=== PATIENT | female | born 1975 | race Hispanic/Latino ===

== ENCOUNTER 2017-08-01 14:08 | Emergency (ER) | payer SELFPAY ==
--- NOTE | 2017-08-01 14:32 | RAD REPORT ---
EXAM DESCRIPTION: CT - Ct Stroke Brain Wo Cont - 08/01/2017 2:25 pm CLINICAL HISTORY: CVA COMPARISON: None. TECHNIQUE: All CT scans are performed using dose optimization technique as appropriate and may inclu de automated exposure control or mA/KV adjustment according to patient size. FINDINGS: No intracranial hemorrhage, hydrocephalus or extra-axial fluid collection.No areas of brai n edema or evidence of midline shift. Mild mucoperiosteal thickening is seen affects the right maxillary antrum. The paranasal sinuses and mastoids otherwise clear. The calvarium is intact. IMPRESSION: No acute intracranial abnormality. Mild mucoperiosteal thickening of the right maxillary antrum. The findings were discussed with Dr. Coker in the emergency room on 08/01/2017 at 2:28 p.m. by traci myers.
[2017-08-01] MEDS ORDERED: NA CHLORIDE 0.9% 1,000 ML ONE (14:42)
[2017-08-01] MEDS ORDERED: ONDANSETRON 4 MG/2 ML VIAL ONE ×2 (14:42→16:53)
[2017-08-01] MEDS ORDERED: MORPHINE 4 MG/ML SYR ONE ×2 (14:42→16:46)
[2017-08-01] MEDS ORDERED: FOLIC ACID 5 MG/ML VIAL ONE (14:43)
[2017-08-01 14:47] LABS: RBC Red Blood Cell Count 5.42 M/uL (3.86-4.86)
[2017-08-01 14:48] LABS: Absolute Lymphocytes (CBC) 3.1 K/uL (0.7-4.9); Absolute Monocytes 0.6 K/uL (0.1-1.3); Absolute Neutrophil 5.5 K/uL (1.8-8.0); Basophils % 1.2 % (0-1.3); Eosinophils % 2.5 % (0-4.4); Hematocrit 43.1 % (36.0-45.0); Lymphocytes % 32.4 % (15.3-44.8); MCH 25.7 pg (27.0-35.0); MCV 79.6 fL (80-100); MPV 8.3 fL (7.6-11.3)
[2017-08-01 15:09] LABS: BUN Blood Urea Nitrogen 10 mg/dL (6-20); Bicarbonate 24 mEq/L (21-31); Glucose Level 112 mg/dL (65-120); Potassium 3.1 mEq/L (3.6-5.0); Sodium Level 136 mEq/L (135-145)
[2017-08-01 15:18] LABS: Protime INR 0.99
--- NOTE | 2017-08-01 15:19 | RAD REPORT ---
EXAM DESCRIPTION: RAD - Chest Single View - 08/01/2017 3:10 pm CLINICAL HISTORY: Chest pain. COMPARISON: None. FINDINGS: Portable technique limits examination quality. The lungs are underinflated but grossly clear. The heart is upper limit normal in size. No displaced fractures. IMPRESSION: Underinflated lungs.
--- NOTE | 2017-08-01 16:45 | RAD REPORT ---
EXAM DESCRIPTION: MRI - Brain Wo Cont - 08/01/2017 4:25 pm CLINICAL HISTORY: TIA, possible CVA, left extremity weakness COMPARISON: CT head same date TECHNIQUE: Sagittal T1-weighted images were obtained along with axial PD, heavily T2-weighted and T2 -FLAIR images. Axial DWI and ADC mapping sequences were also obtained along with coronal heavily T2-w eighted images. FINDINGS: No intracranial hemorrhage, mass or acute infarction. There is no edema or shift of midlin e structures. No extra-axial fluid collections. Lopez-matter/white matter junction is preserved. Signa l voids are seen as a normal finding in the major intracranial vessels. Ventricles are normal. No vas culitis, migraine headache changes or other focal brain parenchymal abnormality. No sella or supra se lla finding. No tonsillar ectopia. No globe or orbital content abnormality. Mastoid air cells are clear. Mucosal thickening seen in the maxillary sinuses. IMPRESSION: No infarction or other acute or significant intracranial finding. Maxillary sinus mucosal thickening.
[2017-08-01] MEDS ORDERED: DEXAMETHASONE 10 MG/ML VIAL ONE (16:52)
[2017-08-01] MEDS ORDERED: DIPHENHYDRAMINE 50 MG/ML VIAL ONE (16:53)
[2017-08-01] MEDS ORDERED: FAMOTIDINE 20 MG/2 ML VIAL IV ONE (16:54)
[2017-08-01 17:14] LABS: Urine Bacteria <20 /HPF (<20); Urine RBC <5 /HPF (NONE SEEN)
[2017-08-01 17:16] LABS: Urine Culture Reflex Order NOT NEEDED
[2017-08-01 17:16] LABS: Urine Blood 1+ (NEG); Urine Glucose NEGATIVE (NEG); Urine Protein NEGATIVE (NEG)
--- NOTE | 2017-08-01 17:37 | EKG ---
Test Date: 2017-08-01 Test Time: 14:55:59 Crane Follower: EMMANUEL MEASUREMENT RESULTS: Intervals: Rate: 93 [place]: 138 QRSD: 78 QT: 340 QTc: 422 [place]: P: 25 [place]: 138 QRS: 52 T: 18 INTERPRETIVE STATEMENTS: Normal sinus rhythm Nonspecific ST and T wave abnormality Abnormal ECG No previous ECG available for comparison Electronically Signed On 08-01-17 17:36:41 CDT by Patrick Moss
--- NOTE | 2017-08-01 17:50 | ER ---
Nurse's Notes 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 Transition of care: patient was not received from another setting of care. Onset of symptoms was August 01, 2017. Risk Assessment: Do you want to hurt yourself or someone else? Patient reports no desire to harm self or others. Initial Sepsis Screen: Does the patient meet any 2 criteria?. Initial Sepsis Screen: Does the patient have a suspected source of infection? No. Patient's initial sepsis screen is negative. Care prior to arrival: None. 14:17 Method Of Arrival: Wheelchair ph 14:17 Acuity: SOL 2 ph 18:39 No acute neurological deficit is noted. The patients blood glucose was checked before iw arriving to the hospital and was found to be normal. Triage Assessment: 14:17 The onset of the patients symptoms was August 01, 2017 at 13:00. iw 14:17 Pain: Complains of pain in left arm. iw 14:17 Neuro: Reports weakness in left arm. iw 18:30 General: Appears in no apparent distress. Behavior is calm, cooperative. iw 18:40 The onset of the patients symptoms was. iw MEDICAL LAB TECHNOLOGIST: 18:40 LMP N/A - iw Stroke Activation: Symptom onset < 3 hours Physician: Stroke Attending; Name: ; Notified At: ; Arrived At: Physician: Chief Stroke Resident; Name: ; Notified At: ; Arrived At: Physician: Stroke Resident; Name: ; Notified At: ; Arrived At: Physician: ED Attending; Name: ; Notified At: ; Arrived At: Physician: ED Resident; Name: ; Notified At: ; Arrived At: Historical: - Allergies: 14:52 NKA; iw - Home Meds: 14:52 None [Active]; iw - PMHx: 14:52 None; iw - Immunization history:: Adult Immunizations up to date. - Ebola Screening: : Patient negative for fever greater than or equal to 101.5 degrees Fahrenheit, and additional compatible Ebola Virus Disease symptoms Patient denies exposure to infectious person Patient denies travel to an Ebola-affected area in the 21 days before illness onset No symptoms or risks identified at this time. - Social history:: Smoking status: Patient/guardian denies using tobacco. Screenin:18 Abuse screen: Denies threats or abuse. Denies injuries from another. Nutritional sv screening: No deficits noted. Tuberculosis screening: No symptoms or risk factors identified. 15:03 Patient has been NPO before screening. The patient is alert, able to follow commands. hb The patient does not exhibit slurred or garbled speech The patient is not exhibiting difficulty speaking. The patient does not exhibit difficulty understanding words. The patient is able to swallow own secretions with no drooling or need for suction. Patient tolerated one teaspoon of water. No drooling, immediate coughing, gurgling, or clearing of the throat was noted. The patient tolerated 90mL of water. No drooling, immediate coughing, gurgling, or clearing of the throat was noted. The patient passed the bedside swallow screening. Oral medications may be given as ordered. Contact Physician for further diet orders. Fall Risk None identified. Assessment: 14:15 Reassessment: Code Stroke called. sv 14:45 Reassessment: Alec Pappas at bedside to reassess pt. iw 14:52 Reassessment: Dr. Coker at bedside to assess patient. iw 14:54 Reassessment: MRI ordered, staff notified, states they have a patient on the table iw right now but will come get her after. 15:04 Patient has been NPO before screening. The patient is alert, and able to follow hb commands. The patient does not exhibit slurred or garbled speech. The patient is not exhibiting difficulty speaking. The patient does not exhibit difficulty understanding words. The patient is able to swallow own secretions with no drooling or need for suction. Patient tolerated one teaspoon of water. No drooling, immediate coughing, gurgling, or clearing of the throat was noted. The patient tolerated 90mL of water. No drooling, immediate coughing, gurgling, or clearing of the throat was noted. The patient passed the bedside swallow screening. Oral medications may be given as ordered. Contact Physician for further diet orders. Provider notified of bedside swallow screening results: Alec Coker MD. T-PA (Activase) Screening: Indications: Definite evidence of stroke, ischemic, embolic, or hypertensive: No. Treatment will start within 4.5 hours onset of symptoms: Yes. 16:00 Reassessment: Patient appears in no apparent distress at this time. Patient and/or hb family updated on plan of care and expected duration. Pain level reassessed. Patient is alert, oriented x 3, equal unlabored respirations, skin warm/dry/pink. Patient states symptoms have improved. 17:00 Reassessment: Patient appears in no apparent distress at this time. No changes from hb previously documented assessment. Patient and/or family updated on plan of care and expected duration. Pain level reassessed. Patient is alert, oriented x 3, equal unlabored respirations, skin warm/dry/pink. 18:00 Reassessment: Patient appears in no apparent distress at this time. No changes from hb previously documented assessment. Patient and/or family updated on plan of care and expected duration. Pain level reassessed. Patient is alert, oriented x 3, equal unlabored respirations, skin warm/dry/pink. 18:38 Reassessment: Patient appears in no apparent distress at this time. Patient and/or iw family updated on plan of care and expected duration. Pain level reassessed. Patient is alert, oriented x 3, equal unlabored respirations, skin warm/dry/pink. Patient states feeling better. Patient states symptoms have improved. 18:40 Neuro: No deficits noted. iw Vital Signs: 14:30 BP 182 / 112; Pulse 99; Resp 18 S; Temp 98.3; Pulse Ox 98% on R/A; iw 14:49 Weight 62.82 kg (M); sv 14:50 BP 170 / 109; Pulse 110; Resp 22 S; Pulse Ox 98% on R/A; Pain 10/10; iw 15:22 BP 144 / 90; Pulse 107; Resp 18 S; Pulse Ox 100% on R/A; iw 16:38 BP 133 / 71; Pulse 75; Resp 16; Pulse Ox 100% on R/A; Pain 5/10; hb 17:46 BP 137 / 76; Pulse 75; Resp 18; Pulse Ox 100% ; sv 18:29 BP 126 / 65; Pulse 74; Resp 15; Pulse Ox 100% on R/A; hb NIH Stroke Scale Scores: 14:33 NIHSS Score: 5 cp 15:04 NIHSS Score: 1 hb ED Course: 14:12 Patient arrived in ED. mr 14:12 None, None is Private Physician. mr 14:15 Arm band placed on right wrist. hb 14:[address] via wheelchair. sv 14:18 Patient has correct armband on for positive identification. sv 14:20 Triage completed. ph 14:21 Alec Pappas PA is PHCP. cp 14:21 Alec Coker MD is Attending Physician. cp 14:26 CT Stroke Brain w/o Contrast In Process Unspecified. EDMS 14:27 Patient moved back from CT. sv 14:30 Initial lab(s) drawn, by me, sent to lab. Inserted saline lock: 20 gauge in right sv antecubital area, using aseptic technique. Blood collected. Flushed right antecubital with 5 ml normal saline. 14:35 equipment monitor phototypesetting on. Pulse ox on. NIBP on. sv 14:43 Placed in gown. Bed in low position. Call light in reach. Side rails up X2. Adult w/ sv patient. 14:55 X-ray(s) taken. sv 15:04 EKG done, by media technician. reviewed by Alec Coker MD. sm3 15:05 X-ray completed. Portable x-ray completed in exam room. Patient tolerated procedure ag1 well. 15:07 Stroke CXR 1 View In Process Unspecified. EDMS 16:10 Patient moved to MRI via wheelchair. ka 16:12 Brain Wo Cont In Process Unspecified. EDMS 16:28 MRI completed. Patient tolerated well. Patient moved back from MRI. em2 16:38 Gloria Levine, RN is Primary Nurse. hb 16:54 Urine collected: clean catch specimen, cloudy, anabella colored. jb1 18:38 No provider procedures requiring assistance completed. IV discontinued, intact, iw bleeding controlled, No redness/swelling at site. Pressure dressing applied. Administered Medications: 14:40 CANCELLED (Physician Discretion): morphine 2 mg IVP once cp 14:53 Drug: foLIC Acid 1 mg Route: IVPB; Site: right antecubital; hb 16:59 Follow up: IV Status: Completed infusion hb 14:54 CANCELLED (Physician Discretion): ACTIvase 55.8 mg IV at calculated rate Per protocol cp over 60 mins; 0.9 mg/kg IV (Max: 90 mg); give 10% of the total dose as an IV bolus over 1 minute, then give the remaining 90% as an IV infusion over 60 minutes 15:02 Drug: morphine 2 mg Route: IVP; Site: right antecubital; hb 16:59 Follow up: Response: No adverse reaction hb 15:02 Drug: NS 0.9% 1000 ml Route: IV; Rate: 1 bolus; Site: right antecubital; hb 16:15 Follow up: IV Status: Completed infusion iw 15:03 Drug: Aspirin Chewable Tablet 324 mg Route: PO; hb 16:58 Follow up: Response: No adverse reaction hb 16:49 Drug: morphine 2 mg Route: IVP; Site: right antecubital; hb 16:59 Follow up: Response: No adverse reaction hb 16:58 Drug: Zofran 4 mg Route: IVP; Site: right antecubital; hb 17:10 Follow up: Response: No adverse reaction iw 16:58 Drug: Pepcid 20 mg Route: IVP; Site: right antecubital; hb 17:15 Follow up: Response: No adverse reaction iw 16:58 Drug: Decadron - Dexamethasone 10 mg Route: IVP; Site: right antecubital; hb 18:41 Follow up: Response: No adverse reaction iw 16:58 Drug: Benadryl 12.5 mg Route: IVP; Site: right antecubital; hb 17:30 Follow up: Response: No adverse reaction; Pain is decreased iw Point of Care Testing: Blood Glucose: 14:18 Blood Glucose: 126 mg/dL; sv Ranges: Outcome: 17:50 Discharge ordered by . cp 18:39 Discharged to home iw 18:39 Condition: good 18:39 Discharge instructions given to patient, family, Instructed on discharge instructions, follow up and referral plans. medication usage, Demonstrated understanding of instructions, follow-up care, medications, Prescriptions given X 3. 18:42 Patient left the ED. iw NIH Stroke Scale - NIH Stroke Score Date: 08/01/2017 Time: 14:33 Total Score = 5 1a. Level of Consciousness (LOC) - 0(Alert) 1b. Level of Consciousness (LOC) (Year \\T\\ Age) - 0(Both) 1c. LOC Commands (Open \\T\\ Closes Eyes/Paint Preparer) - 1(One) 2. Best Gaze (Lateral Gaze Paresis) - 0(Normal) 3. Visual Field Loss - 0(No visual loss) 4. Facial Palsy - 0(Normal) 5a. Left Arm: Motor (10-second hold) - 2(Drift, some effort against gravity) 5b. Right Arm: Motor (10-second hold) - 0(No drift) 6a. Left Leg: Motor (5-second hold - always test supine) - 0(No drift) 6b. Right Leg: Motor (5-second hold - always test supine) - 0(No drift) 7. Limb Ataxia (finger/nose \\T\\ heel/maya - test with eyes open) - 1(Present in one limb) 8. Sensory Loss (pinprick arms/legs/face) - 1(Mild to moderate loss) 9. Best Language: Aphasia (description/naming/reading) - 0(No aphasia) 10. Dysarthria (speech clarity - read or repeat words) - 0(Normal) 11. Extinction and Inattention (visual/tactile/auditory/spatial/personal) - 0(No abnormality) Initials: cp NIH Stroke Scale - NIH Stroke Score Date: 08/01/2017 Time: 15:04 Total Score = 1 1a. Level of Consciousness (LOC) - 0(Alert) 1b. Level of Consciousness (LOC) (Year \\T\\ Age) - 0(Both) 1c. LOC Commands (Open \\T\\ Closes Eyes/Paint Preparer) - 0(Both) 2. Best Gaze (Lateral Gaze Paresis) - 0(Normal) 3. Visual Field Loss - 0(No visual loss) 4. Facial Palsy - 0(Normal) 5a. Left Arm: Motor (10-second hold) - 0(No drift) 5b. Right Arm: Motor (10-second hold) - 0(No drift) 6a. Left Leg: Motor (5-second hold - always test supine) - 0(No drift) 6b. Right Leg: Motor (5-second hold - always test supine) - 0(No drift) 7. Limb Ataxia (finger/nose \\T\\ heel/maya - test with eyes open) - 0(Absent) 8. Sensory Loss (pinprick arms/legs/face) - 1(Mild to moderate loss) 9. Best Language: Aphasia (description/naming/reading) - 0(No aphasia) 10. Dysarthria (speech clarity - read or repeat words) - 0(Normal) 11. Extinction and Inattention (visual/tactile/auditory/spatial/personal) - 0(No abnormality) Initials: Signatures: Dispatcher [employer] EDFerny Peterson jb1 Pricila Newby, RN Lidya Adams Irene, RN Carlos Enrique Lyles2 Senia Weller RN Annamaria Dupree ph ag1 Alec Pappas PA PA cp Aguilera, Katelyn ka Baxter, Heather, RN RN Surekha Bruner 3 Corrections: (The following items were deleted from the chart) 14:50 14:48 62.6 kg Measured; [facility]
--- NOTE | 2017-08-01 17:50 | EDPHYS ---
Physician Documentation [facility] Name: Lidya Hall Age: 42 yrs Sex: Female : 1975 Arrival Date: 08/01/2017 Time: 14:12 Bed 6 Private MD: None, None ED Physician Alec Coker HPI: 08/01 14:40 This 42 yrs old Female presents to ER via Wheelchair with complaints of cp Numbness Of Arm. 14:40 The patient or guardian complains of pain, that is acute, tenderness, weakness. The cp complaints affect the left arm. Onset: The symptoms/episode began/occurred 1 hour(s) ago. Treatment prior to arrival includes: took OTC aspirin. Associated signs and symptoms: Pertinent negatives: deformity, fever, injury. Severity of symptoms: in the emergency department the symptoms are unchanged, despite home interventions. 15:05 Patient reports prior to having symptoms she was involved in tense argument with son cp concerning finances for upcoming wedding. 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 - Ebola Screening: : Patient negative for fever greater than or equal to 101.5 degrees Fahrenheit, and additional compatible Ebola Virus Disease symptoms Patient denies exposure to infectious person Patient denies travel to an Ebola-affected area in the 21 days before illness onset No symptoms or risks identified at this time. - Social history:: Smoking status: Patient/guardian denies using tobacco. ROS: 14:42 Eyes: Negative for injury, pain, redness, and discharge. cp 14:42 Constitutional: Negative for body aches, chills, fever, poor PO intake. 14:42 ENT: Negative for drainage from ear(s), ear pain, sore throat, difficulty swallowing, difficulty handling secretions. 14:42 Cardiovascular: Negative for chest pain, edema, palpitations. 14:42 Respiratory: Negative for cough, shortness of breath, wheezing. 14:42 Abdomen/GI: Negative for abdominal pain, vomiting, diarrhea, constipation, black/tarry stool, rectal bleeding. 14:42 MS/extremity: Positive for pain, paresthesias, of the left arm, Negative for injury or acute deformity. 14:42 Neuro: Positive for weakness, of the left arm. 14:42 All other systems are negative. Exam: 14:45 Constitutional: The patient appears in no acute distress, alert, awake, cp non-diaphoretic, non-toxic, well developed, well nourished, uncomfortable. 14:45 Head/Face: Normocephalic, atraumatic. Eyes: Pupils equal round and reactive to light, cp extra-ocular motions intact. Lids and lashes normal. Conjunctiva and sclera are non-icteric and not injected. Cornea within normal limits. Periorbital areas with no swelling, redness, or edema. ENT: Nares patent. No nasal discharge, no septal abnormalities noted. Tympanic membranes are normal and external auditory canals are clear. Oropharynx with no redness, swelling, or masses, exudates, or evidence of obstruction, uvula midline. Mucous membranes moist. Neck: Trachea midline, no thyromegaly or masses palpated, and no cervical lymphadenopathy. Supple, full range of motion without nuchal rigidity, or vertebral point tenderness. No Meningismus. Chest/axilla: Normal chest wall appearance and motion. Nontender with no deformity. No lesions are appreciated. 14:45 Cardiovascular: Rate: normal, Rhythm: regular, Pulses: Pulses are 2+ in right radial artery and left radial artery. Heart sounds: murmur, not appreciated, rub, not appreciated, gallop, not appreciated, Edema: is not appreciated, JVD: is not appreciated. 14:45 Respiratory: the patient does not display signs of respiratory distress, Respirations: normal, no use of accessory muscles, no retractions, no splinting, no tachypnea, labored breathing, is not present, Breath sounds: are clear throughout, no decreased breath sounds, no stridor, no wheezing. 14:45 Abdomen/GI: Inspection: abdomen appears normal, Bowel sounds: active, all quadrants, Palpation: abdomen is soft and non-tender, in all quadrants, rebound tenderness, is not appreciated, voluntary guarding, is not appreciated, involuntary guarding, is not appreciated. 14:45 Back: pain, is absent, ROM is normal. 14:45 Musculoskeletal/extremity: Extremities: grossly normal except: noted in the left arm: decreased ROM, pain, tenderness, the left arm decreased sensation. 14:45 Skin: cellulitis, is not appreciated, no rash present. 14:45 Neuro: Orientation: to person, place \T\ time. Mentation: lucid, able to follow commands, Cerebellar function: dysmetria is noted on the left, heel to maya testing is normal, Motor: strength is 4/5 in the left arm. Vital Signs: 14:30 BP 182 / 112; Pulse 99; Resp 18 S; Temp 98.3; Pulse Ox 98% on R/A; iw 14:49 Weight 62.82 kg (M); sv 14:50 BP 170 / 109; Pulse 110; Resp 22 S; Pulse Ox 98% on R/A; Pain 10/10; iw 15:22 BP 144 / 90; Pulse 107; Resp 18 S; Pulse Ox 100% on R/A; iw 16:38 BP 133 / 71; Pulse 75; Resp 16; Pulse Ox 100% on R/A; Pain 5/10; hb 17:46 BP 137 / 76; Pulse 75; Resp 18; Pulse Ox 100% ; sv 18:29 BP 126 / 65; Pulse 74; Resp 15; Pulse Ox 100% on R/A; hb NIH Stroke Scale Scores: 14:33 NIHSS Score: 5 cp 15:04 NIHSS Score: 1 hb MDM: 14:21 Patient medically screened. cp 14:30 Differential diagnosis: tendonitis, anxiety, CVA, TIA, cardiac arrythmia, acute MA. cp 15:00 Physician consultation: Alec Coker MD regarding patient's condition, administration cp of tpa, would like further tests performed, MRI, patient within window of use of tpa, wants head/brain MRI before considering tpa. Believes symptoms due to recent argument with son and not due to CVA. 17:45 Data reviewed: vital signs, nurses notes, lab test result(s), EKG, radiologic studies, cp CT scan, MRI. 17:45 Response to treatment: the patient's symptoms have markedly improved after treatment, cp VSS. Pain and symptoms markedly improved. Head CT and MRI both negative for acute findings. Will discharge to home for continued monitoring. 08/01 14:16 Order name: Basic Metabolic Panel; Complete Time: 15:50 sv 08/01 15:50 Interpretation: Normal except: K 3.1. cp 08/01 14:16 Order name: CBC with Diff; Complete Time: 15:50 sv 08/01 15:50 Interpretation: Normal except: RBC 5.42; MCV 79.6; MCH 25.7; PLT 484. 08/01 14:16 Order name: Protime (+inr); Complete Time: 15:50 sv 08/01 14:16 Order name: Ptt, Activated; Complete Time: 15:50 sv 08/01 14:16 Order name: Urine Microscopic Only; Complete Time: 17:19 sv 08/01 17:19 Interpretation: Normal except: SQEPI 5-10. 08/01 14:20 Order name: Glucose, Ancillary Testing; Complete Time: 14:21 EDMS 08/01 14:21 Interpretation: GLUC,ANCIL 126; Reviewed. 08/01 14:16 Order name: CT Stroke Brain w/o Contrast; Complete Time: 14:39 sv 08/01 14:39 Interpretation: Report reviewed. 08/01 14:16 Order name: Stroke CXR 1 View; Complete Time: 15:50 sv 08/01 16:12 Order name: Brain Wo Cont; Complete Time: 16:46 EDMS 08/01 17:03 Order name: Urine Dipstick--Ancillary (enter results); Complete Time: 17:19 ag 08/01 17:19 Interpretation: Normal except: UBLD 1+. 08/01 17:03 Order name: Urine --Ancillary (enter results); Complete Time: 17:19 ag 08/01 14:16 Order name: EKG; Complete Time: 14:17 sv 08/01 14:16 Order name: Accucheck; Complete Time: 14:19 sv 08/01 14:16 Order name: Cardiac monitoring; Complete Time: 14:54 sv 08/01 14:16 Order name: EKG - Nurse/Tech; Complete Time: 14:53 sv 08/01 14:16 Order name: IV Saline Lock; Complete Time: 14:53 sv 08/01 14:16 Order name: Labs collected and sent; Complete Time: 14:53 sv 08/01 14:16 Order name: NPO; Complete Time: 14:53 sv 08/01 14:16 Order name: O2 Per Protocol; Complete Time: 14:53 sv 08/01 14:16 Order name: O2 Sat Monitoring; Complete Time: 14:53 sv 08/01 14:16 Order name: Stroke Swallow Screen; Complete Time: 15:03 sv 08/01 14:16 Order name: Urine Dipstick-Ancillary (obtain specimen); Complete Time: 16:54 sv Administered Medications: 14:40 CANCELLED (Physician Discretion): morphine 2 mg IVP once cp 14:53 Drug: foLIC Acid 1 mg Route: IVPB; Site: right antecubital; hb 16:59 Follow up: IV Status: Completed infusion hb 14:54 CANCELLED (Physician Discretion): ACTIvase 55.8 mg IV at calculated rate Per protocol cp over 60 mins; 0.9 mg/kg IV (Max: 90 mg); give 10% of the total dose as an IV bolus over 1 minute, then give the remaining 90% as an IV infusion over 60 minutes 15:02 Drug: morphine 2 mg Route: IVP; Site: right antecubital; hb 16:59 Follow up: Response: No adverse reaction hb 15:02 Drug: NS 0.9% 1000 ml Route: IV; Rate: 1 bolus; Site: right antecubital; hb 16:15 Follow up: IV Status: Completed infusion iw 15:03 Drug: Aspirin Chewable Tablet 324 mg Route: PO; hb 16:58 Follow up: Response: No adverse reaction hb 16:49 Drug: morphine 2 mg Route: IVP; Site: right antecubital; hb 16:59 Follow up: Response: No adverse reaction hb 16:58 Drug: Zofran 4 mg Route: IVP; Site: right antecubital; hb 17:10 Follow up: Response: No adverse reaction iw 16:58 Drug: Pepcid 20 mg Route: IVP; Site: right antecubital; hb 17:15 Follow up: Response: No adverse reaction iw 16:58 Drug: Decadron - Dexamethasone 10 mg Route: IVP; Site: right antecubital; hb 18:41 Follow up: Response: No adverse reaction iw 16:58 Drug: Benadryl 12.5 mg Route: IVP; Site: right antecubital; hb 17:30 Follow up: Response: No adverse reaction; Pain is decreased iw Point of Care Testing: Blood Glucose: 14:18 Blood Glucose: 126 mg/dL; sv Ranges: Critical Glucose Levels:Adult <50 mg/dl or >400 mg/dl <40 mg/dl or >180 mg/dl Disposition: 08/01/17 17:50 Discharged to Home. Impression: Paresthesia of skin - Left Arm, Pain in left arm. - Condition is Stable. - Discharge Instructions: Musculoskeletal Pain, Paresthesia. - Prescriptions for Naprosyn 500 mg Oral Tablet - take 1 tablet by ORAL route 2 times per day take with food; 20 tablet. Cyclobenzaprine 10 mg Oral Tablet - take 1 tablet by ORAL route every 8 hours As needed no driving while taking medication; 20 tablet. Tramadol 50 mg Oral Tablet - take 1 tablet by ORAL route every 8 hours as needed. no driving while taking medication; 12 tablet. - Medication Reconciliation Form, Thank You Letter, Antibiotic Education, Prescription Opioid Use form. - Follow up: Private Physician; When: 2 - 3 days; Reason: Recheck today's complaints. - Problem is new. - Symptoms have improved. NIH Stroke Scale - NIH Stroke Score Date: 08/01/2017 Time: 14:33 Total Score = 5 1a. Level of Consciousness (LOC) - 0(Alert) 1b. Level of Consciousness (LOC) (Year \T\ Age) - 0(Both) 1c. LOC Commands (Open \T\ Closes Eyes/Fishing Game Warden) - 1(One) 2. Best Gaze (Lateral Gaze Paresis) - 0(Normal) 3. Visual Field Loss - 0(No visual loss) 4. Facial Palsy - 0(Normal) 5a. Left Arm: Motor (10-second hold) - 2(Drift, some effort against gravity) 5b. Right Arm: Motor (10-second hold) - 0(No drift) 6a. Left Leg: Motor (5-second hold - always test supine) - 0(No drift) 6b. Right Leg: Motor (5-second hold - always test supine) - 0(No drift) 7. Limb Ataxia (finger/nose \T\ heel/maya - test with eyes open) - 1(Present in one limb) 8. Sensory Loss (pinprick arms/legs/face) - 1(Mild to moderate loss) 9. Best Language: Aphasia (description/naming/reading) - 0(No aphasia) 10. Dysarthria (speech clarity - read or repeat words) - 0(Normal) 11. Extinction and Inattention (visual/tactile/auditory/spatial/personal) - 0(No abnormality) Initials: cp NIH Stroke Scale - NIH Stroke Score Date: 08/01/2017 Time: 15:04 Total Score = 1 1a. Level of Consciousness (LOC) - 0(Alert) 1b. Level of Consciousness (LOC) (Year \T\ Age) - 0(Both) 1c. LOC Commands (Open \T\ Closes Eyes/Fishing Game Warden) - 0(Both) 2. Best Gaze (Lateral Gaze Paresis) - 0(Normal) 3. Visual Field Loss - 0(No visual loss) 4. Facial Palsy - 0(Normal) 5a. Left Arm: Motor (10-second hold) - 0(No drift) 5b. Right Arm: Motor (10-second hold) - 0(No drift) 6a. Left Leg: Motor (5-second hold - always test supine) - 0(No drift) 6b. Right Leg: Motor (5-second hold - always test supine) - 0(No drift) 7. Limb Ataxia (finger/nose \T\ heel/maya - test with eyes open) - 0(Absent) 8. Sensory Loss (pinprick arms/legs/face) - 1(Mild to moderate loss) 9. Best Language: Aphasia (description/naming/reading) - 0(No aphasia) 10. Dysarthria (speech clarity - read or repeat words) - 0(Normal) 11. Extinction and Inattention (visual/tactile/auditory/spatial/personal) - 0(No abnormality) Initials: hb Addendum: 08/05/2017 09:05 Co-signature as Attending Physician, Alec Coker MD I agree with the [place] assessment and plan of care. Signatures: Dispatcher [employer] Pricila Vann RN RN sv Anderson, Corey, MD MD [place] Mary Galeano RN RN iw Page, Corey, PA PA cp Baxter, Heather, RN RN Corrections: (The following items were deleted from the chart) 08/01 14:40 14:40 morphine 2 mg IVP once ordered. cp cp 14:54 14:50 ACTIvase 55.8 mg IV at calculated rate Per protocol over 60 mins; 0.9 cp mg/kg IV (Max: 90 mg); give 10% of the total dose as an IV bolus over 1 minute, then give the remaining 90% as an IV infusion over 60 minutes ordered. cp 16:12 14:54 MR STROKE PROTOCOL+MRI.RAD.BRZ ordered. EDMS EDMS 18:42 17:50 08/01/2017 17:50 Discharged to Home. Impression: Paresthesia of skin - iw Left Arm; Pain in left arm. Condition is Stable. Forms are Medication Reconciliation Form, Thank You Letter, Antibiotic Education, Prescription Opioid Use. Follow up: Private Physician; When: 2 - 3 days; Reason: Recheck today's complaints. Problem is new. Symptoms have improved. cp
== END 2017-08-01 18:42 | disposition home or self-care (01) ==
LOC: ER 14:08
DX: M79.1 Myalgia (principal)
CPT/HCPCS: 36415; 70450; 70551; 71045; 80048; 81003; 81015; 81025; 82962; 85025; 85610; 85730; 93005; 96365; 96366; 96375; 99285; J1100; J2405; J7030

== ENCOUNTER 2018-02-11 15:26 | Emergency (ER) | payer SELFPAY ==
--- NOTE | 2018-02-11 17:17 | RAD REPORT ---
EXAM DESCRIPTION: CT - [id number] - 02/11/2018 5:02 pm CLINICAL HISTORY: Headache, neck pain COMPARISON: None. TECHNIQUE: Axial 5 mm thick images of the head were obtained. Axial 2 mm thick images of the cervic al spine were obtained with sagittal and coronal reconstruction images generated and reviewed. All CT scans are performed using dose optimization technique as appropriate and may include automated exposure control or mA/KV adjustment according to patient size. FINDINGS: No intracranial hemorrhage, mass, edema or acute intracranial finding. No suspicion for acute infarct ion. No extra-axial fluid collections. Mastoid air cells are clear. Scattered mucosal thickening thro ughout the paranasal sinuses. No air-fluid levels. There is opacification of the left nasal passage. This could be from mucosal edema of the turbinate. Mass or polyposis is unlikely but can be correlate d with physical exam. No globe or orbit abnormality seen. Cervical body height and alignment are normal. No rotation abnormality. No disk space narrowing. No f racture or acute bony abnormality. No paraspinal mass or hematoma. IMPRESSION: Negative CT head examination for acute or significant finding. Paranasal sinus and left nasal passage mucosal thickening. Nasal passage mass or polyposis unlikely b ut can be correlated with physical exam findings. Negative CT cervical spine examination for acute or significant finding.
[2018-02-11] MEDS ORDERED: DEXAMETHASONE 10 MG/ML VIAL ONE (17:19)
[2018-02-11] MEDS ORDERED: HYDROCODONE/APAP 10/325 TAB ONE (17:20)
[2018-02-11] MEDS ORDERED: DIAZEPAM 5 MG TABLET ONE (17:20)
--- NOTE | 2018-02-11 17:50 | EDPHYS ---
Physician Documentation [facility] Name: Lidya Hall Age: 43 yrs Sex: Female : 1975 Arrival Date: 02/11/2018 Time: 15:34 Bed 18 Private MD: ED Physician Saad Pryor HPI: 02/11 16:44 This 43 yrs old Female presents to ER via Ambulatory with complaints of Neck jmm Pain, <24hrs Old, Back Pain. 16:44 The patient or guardian complains of pain. Onset: The symptoms/episode began/occurred jmm gradually, 3 day(s) ago. Associated signs and symptoms: Pertinent positives:. The pain radiates to the left arm. This is a 43 year old female with no chronic medical conditions that presents to the ED with left upper back pain radiating to the neck and the left arm beginning after sweeping this past Friday. Patient states she had an ache in the left arm for approx 1 week prior. Patient also complains of left hip pain but denies known injury. . 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 - Social history:: Smoking status: . - Ebola Screening: : Patient negative for fever greater than or equal to 101.5 degrees Fahrenheit, and additional compatible Ebola Virus Disease symptoms Patient denies travel to an Ebola-affected area in the 21 days before illness onset. ROS: 16:44 Constitutional: Negative for fever, chills, and weight loss, Cardiovascular: Negative jmm for chest pain, palpitations, and edema, Respiratory: Negative for shortness of breath, cough, wheezing, and pleuritic chest pain. 16:44 Back: Positive for pain with movement. 16:44 MS/extremity: Positive for pain. 16:44 Neuro: Positive for headache. 16:44 All other systems are negative. Exam: 16:44 Constitutional: This is a well developed, well nourished patient who is awake, alert, jmm and in no acute distress. Head/Face: atraumatic. Eyes: EOMI, no conjunctival erythema appreciated ENT: Moist Mucus Membranes Neck: Trachea midline, Supple Chest/axilla: Normal chest wall appearance and motion. Cardiovascular: Regular rate and rhythm. No edema appreciated Respiratory: Normal respirations, no respiratory distress appreciated 16:44 Neck: C-spine: appears grossly normal, no vertebral tenderness. 16:44 Back: muscle spasm, is appreciated in the left scapular area. 16:44 Musculoskeletal/extremity: ROM: intact in all extremities. 16:44 Neuro: Orientation: is normal, Mentation: is normal, Memory: is normal. 16:44 Psych: Behavior/mood is pleasant, cooperative. Vital Signs: 15:36 BP 154 / 102; Pulse 101; Resp 19; Temp 98.7(TE); Pulse Ox 100% on R/A; Pain 10/10; tw2 17:30 BP 144 / 90; Pulse 72; Resp 17; Pulse Ox 100% on R/A; aj MDM: 16:44 Patient medically screened. [facility] 17:47 Data reviewed: vital signs, nurses notes. Counseling: I had a detailed discussion with jeimy the patient and/or guardian regarding: the historical points, exam findings, and any diagnostic results supporting the discharge/admit diagnosis, radiology results, the need for outpatient follow up, to return to the emergency department if symptoms worsen or persist or if there are any questions or concerns that arise at home. Response to treatment: the patient's symptoms have resolved after treatment, and as a result, I will discharge patient. ED course: Patient has no hip pain. Symptoms appear most likely musculoskeletal. Patient advised to establish herself with a pcp and otherwise given strict return precautions. Patient understood and agrees with the plan of care. . 02/11 16:45 Order name: CT Head C Spine [facility] 02/11 17:19 Order name: CT; Complete Time: 17:38 EDMS Administered Medications: 17:19 Drug: [place] 10 mg-325 mg 1 tabs Route: PO; aj 18:20 Follow up: Response: Pain is decreased aj 17:19 Drug: Valium 5 mg Route: PO; aj 18:18 Follow up: Response: Pain is decreased aj 17:19 Drug: Dexamethasone 10 mg Route: IM; Site: Other; aj 18:18 Follow up: Response: Pain is decreased aj Disposition: 18:38 Co-signature as Attending Physician, Saad Pryor MD. rn Disposition: 02/11/18 17:49 Discharged to Home. Impression: Muscle spasm. - Condition is Stable. - Discharge Instructions: Muscle Cramps and Spasms. - Prescriptions for Ultracet 37.5- 325 mg Oral Tablet - take 1 tablet by ORAL route every 6 hours - for up to 5 days; do not exceed 8 tablets per day.; 12 tablet. Valium 5 mg Oral Tablet - take 1 tablet by ORAL route every 8 hours As needed; 6 tablet. - Medication Reconciliation Form, Thank You Letter, Antibiotic Education, Prescription Opioid Use form. - Follow up: Private Physician; When: 2 - 3 days; Reason: Recheck today's complaints, Continuance of care, Re-evaluation by your physician. Signatures: Dispatcher [employer] Ananya Matthew RN Abdoul Jamil PA PA jmm Nieto, Roman, MD MD rn Wise, Tara, RN RN tw2 Corrections: (The following items were deleted from the chart) 18:20 17:49 02/11/2018 17:49 Discharged to Home. Impression: Muscle spasm. Condition is aj Stable. Forms are Medication Reconciliation Form, Thank You Letter, Antibiotic Education, Prescription Opioid Use. Follow up: Private Physician; When: 2 - 3 days; Reason: Recheck today's complaints, Continuance of care, Re-evaluation by your physician. jeimy
--- NOTE | 2018-02-11 17:50 | ER ---
Nurse's Notes [facility] Name: Lidya Hall Age: 43 yrs Sex: Female : 1975 Arrival Date: 02/11/2018 Time: 15:34 Bed 18 Private MD: Diagnosis: Muscle spasm Presentation: 02/11 15:34 Presenting complaint: Patient states: the pain started in my left wrist a week ago, tw2 then i was helping someone move, i was sweeping Friday and my shoulder blade and neck was just stuck, my leg and hip hurt. Transition of care: patient was not received from another setting of care. Onset of symptoms was February 11, 2018. Risk Assessment: Do you want to hurt yourself or someone else? Patient reports no desire to harm self or others. Initial Sepsis Screen: Does the patient meet any 2 criteria? No. Patient's initial sepsis screen is negative. Does the patient have a suspected source of infection? No. Patient's initial sepsis screen is negative. Care prior to arrival: None. 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 - Social history:: Smoking status: . - Ebola Screening: : Patient negative for fever greater than or equal to 101.5 degrees Fahrenheit, and additional compatible Ebola Virus Disease symptoms Patient denies travel to an Ebola-affected area in the 21 days before illness onset. Screenin:14 Abuse screen: Denies threats or abuse. Denies injuries from another. Nutritional aj screening: No deficits noted. Tuberculosis screening: No symptoms or risk factors identified. Fall Risk None identified. Assessment: 17:30 General: Appears in no apparent distress. uncomfortable, Behavior is calm, cooperative, aj appropriate for age. Pain: Complains of pain in left scapular area and left arm. Neuro: Level of Consciousness is awake, alert, obeys commands, Oriented to person, place, time, situation, Appropriate for age. Respiratory: Airway is patent Respiratory effort is even, unlabored, Respiratory pattern is regular, symmetrical. Derm: Skin is intact, is healthy with good turgor, Skin is pink, warm \T\ dry. normal. Musculoskeletal: Reports pain in left scapular area and left arm. Vital Signs: 15:36 BP 154 / 102; Pulse 101; Resp 19; Temp 98.7(TE); Pulse Ox 100% on R/A; Pain 10/10; tw2 17:30 BP 144 / 90; Pulse 72; Resp 17; Pulse Ox 100% on R/A; aj ED Course: 15:34 Patient arrived in ED. sb2 15:36 Triage completed. tw2 15:37 Arm band placed on. tw2 16:10 Abdoul Dubon PA is PHCP. jeimy 16:10 Saad Pryor MD is Attending Physician. jeimy 16:53 Ananya Yen, RN is Primary Nurse. aj 18:14 Patient has correct armband on for positive identification. aj 18:14 No provider procedures requiring assistance completed. Patient did not have IV access aj during this emergency room visit. Administered Medications: 17:19 Drug: [place] 10 mg-325 mg 1 tabs Route: PO; aj 18:20 Follow up: Response: Pain is decreased aj 17:19 Drug: Valium 5 mg Route: PO; aj 18:18 Follow up: Response: Pain is decreased aj 17:19 Drug: Dexamethasone 10 mg Route: IM; Site: Other; aj 18:18 Follow up: Response: Pain is decreased aj Outcome: 17:49 Discharge ordered by MD. caprice 18:14 Discharged to home ambulatory. aj 18:14 Condition: good 18:14 Discharge instructions given to patient, family, Instructed on discharge instructions, follow up and referral plans. medication usage, Demonstrated understanding of instructions, follow-up care, medications, Prescriptions given X 2. 18:20 Patient left the ED. aj Signatures: Ananya Yen, RN RN Abdoul Paige PA PA jmm Wise, Tara, RN RN tw2 Atiya Ibarra sb2
== END 2018-02-11 18:20 | disposition home or self-care (01) ==
LOC: ER 15:26
DX: M62.838 Other muscle spasm (principal)
CPT/HCPCS: 70450; 72125; 96372; 99283; J1100

== ENCOUNTER 2020-01-21 00:46 | Emergency (ER) | payer SELFPAY ==
[2020-01-21] MEDS ORDERED: DIPHENHYDRAMINE 50 MG/ML VIAL ONE (01:21)
[2020-01-21] MEDS ORDERED: METHYLPREDNISOLONE 125 MG INJ ONE (01:21)
[2020-01-21] MEDS ORDERED: FAMOTIDINE 20 MG/2 ML VIAL IV ONE ×2 (01:22→04:10)
[2020-01-21] MEDS ORDERED: predniSONE 20 MG TAB ONE (01:22)
[2020-01-21] MEDS ORDERED: NA CHLORIDE 0.9% 1,000 ML ONE (01:22)
--- NOTE | 2020-01-21 01:36 | EDPHYS ---
Physician Documentation [facility] Name: Lidya Hall Age: 44 yrs Sex: Female : 1975 Arrival Date: 01/21/2020 Time: 00:48 Bed 7 Private MD: ROSELINE Physician Alec Coker HPI: 01/20 01:27 This 44 yrs old Female presents to ER via Ambulatory with complaints of Hives. [facility] 01:27 The patient's rash thought to be caused by an unknown cause. The rash is located on the flores body diffusely. The rash can be described as macular, papular, urticarial. Onset: The symptoms/episode began/occurred just prior to arrival, this morning. Associated signs and symptoms: Pertinent positives: burning sensation, itching. Severity of symptoms: At their worst the symptoms were moderate in the emergency department the symptoms are unchanged. Treatment given at home: Benadryl. The patient has experienced a previous episode, last month. 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 - Social history:: Smoking status: Patient denies any tobacco usage or history of. Patient uses alcohol, occasionally. Patient/guardian denies using street drugs. - Family history:: not pertinent. ROS: 01:27 Constitutional: Negative for fever, chills, and weight loss, Eyes: Negative for injury, flores pain, redness, and discharge, ENT: Negative for injury, pain, and discharge, Neck: Negative for injury, pain, and swelling, Cardiovascular: Negative for chest pain, palpitations, and edema, Respiratory: Negative for shortness of breath, cough, wheezing, and pleuritic chest pain, Abdomen/GI: Negative for abdominal pain, nausea, vomiting, diarrhea, and constipation, Back: Negative for injury and pain, : Negative for injury, bleeding, discharge, and swelling, MS/Extremity: Negative for injury and deformity, Neuro: Negative for headache, weakness, numbness, tingling, and seizure, Psych: Negative for depression, anxiety, suicide ideation, homicidal ideation, and hallucinations, Allergy/Immunology: Negative for hives, rash, and allergies, Endocrine: Negative for neck swelling, polydipsia, polyuria, polyphagia, and marked weight changes, Hematologic/Lymphatic: Negative for swollen nodes, abnormal bleeding, and unusual bruising. :27 Skin: Positive for rash, diffusely. Exam: :27 Constitutional: This is a well developed, well nourished patient who is awake, alert, flores and in no acute distress. Head/Face: Normocephalic, atraumatic. Eyes: Pupils equal round and reactive to light, extra-ocular motions intact. Lids and lashes normal. Conjunctiva and sclera are non-icteric and not injected. Cornea within normal limits. Periorbital areas with no swelling, redness, or edema. ENT: Nares patent. No nasal discharge, no septal abnormalities noted. Tympanic membranes are normal and external auditory canals are clear. Oropharynx with no redness, swelling, or masses, exudates, or evidence of obstruction, uvula midline. Mucous membranes moist. Neck: Trachea midline, no thyromegaly or masses palpated, and no cervical lymphadenopathy. Supple, full range of motion without nuchal rigidity, or vertebral point tenderness. No Meningismus. Chest/axilla: Normal chest wall appearance and motion. Nontender with no deformity. No lesions are appreciated. Cardiovascular: Regular rate and rhythm with a normal S1 and S2. No gallops, murmurs, or rubs. Normal PMI, no JVD. No pulse deficits. Respiratory: Lungs have equal breath sounds bilaterally, clear to auscultation and percussion. No rales, rhonchi or wheezes noted. No increased work of breathing, no retractions or nasal flaring. Abdomen/GI: Soft, non-tender, with normal bowel sounds. No distension or tympany. No guarding or rebound. No evidence of tenderness throughout. Back: No spinal tenderness. No costovertebral tenderness. Full range of motion. MS/ Extremity: Pulses equal, no cyanosis. Neurovascular intact. Full, normal range of motion. Neuro: Awake and alert, GCS 15, oriented to person, place, time, and situation. Cranial nerves II-XII grossly intact. Motor strength 5/5 in all extremities. Sensory grossly intact. Cerebellar exam normal. Normal gait. :27 ENT: Posterior pharynx: no acute changes, Airway: normal, no evidence of obstruction, Tonsils: are normal in appearance, Uvula: normal, midline, non-edematous, no erythema, swelling, is not appreciated, erythema, is not appreciated, exudate, is not appreciated. 01:27 Skin: Appearance: Color: normal in color, Temperature: normal temperature, Moisture: normal moisture, petechiae, not noted, ecchymosis, not noted, flushing, not noted, diaphoresis is not appreciated, urticaria. Vital Signs: 01:01 BP 152 / 81; Pulse 112; Resp 18 S; Temp 97.7(O); Pulse Ox 100% on R/A; Weight 68.04 kg bb (R); Height 4 ft. 9 in. (144.78 cm) (R); Pain 0/10; 01:22 BP 134 / 85; Pulse 105; Resp 19; Pulse Ox 100% ; rr5 02:21 BP 122 / 65; Pulse 99; Resp 16; Pulse Ox 99% ; rr5 01:01 Body Mass Index 32.46 (68.04 kg, 144.78 cm) MDM: 00:55 Patient medically screened. [facility] 01:31 Differential diagnosis: allergic reaction. Data reviewed: vital signs, nurses notes, [facility] lab test result(s), CBC, electrolytes. 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 Test interpretation: by ED physician or midlevel provider:. Counseling: I had a detailed discussion with the patient and/or guardian regarding: the historical points, exam findings, and any diagnostic results supporting the discharge/admit diagnosis, lab results, the need for outpatient follow up, for definitive care, an allergy/behavioral intervention specialist, a family practitioner. 01/20 01:06 Order name: CBC with Diff flores 01/20 01:06 Order name: Chem 7 flores Administered Medications: 01:15 Drug: NS 0.9% 1000 ml Route: IV; Rate: 1 bolus; Site: right hand; rr5 02:21 Follow up: Response: No adverse reaction; IV Status: Completed infusion; IV Intake: rr5 1000ml 01:16 Drug: Pepcid 40 mg Route: IVP; Site: right hand; rr5 02:21 Follow up: Response: No adverse reaction rr5 01:19 Drug: SOLU-Medrol 125 mg Route: IVP; Site: right hand; rr5 02:21 Follow up: Response: No adverse reaction rr5 01:22 Drug: Benadryl 25 mg Route: IVP; Site: right hand; rr5 02:20 Follow up: Response: No adverse reaction rr5 01:23 Drug: predniSONE 60 mg Route: PO; rr5 02:21 Follow up: Response: No adverse reaction rr5 01:24 Not Given (Other Intervention Used): Benadryl 50 mg IVP once rr5 Disposition: 01/21/20 01:35 Discharged to Home. Impression: Urticaria. - Condition is Stable. - Discharge Instructions: Hives, Hives, [id number]. - Prescriptions for Benadryl 25 mg Oral Capsule - take 1 capsule by ORAL route every 6 hours As needed; 30 tablet. Pepcid 20 mg Oral Tablet - take 1 tablet by ORAL route every 12 hours for 10 days; 20 tablet. Prednisone 20 mg Oral Tablet - take 2 tablet by ORAL route once daily for 5 days; 10 tablet. EpiPen 0.3 mg Injection auto- injector - inject 1 pen by INTRAMUSCULAR route as directed Inject into the outer portion of the thigh, through clothing if necessary. Indicated in the emergency treatment of allergic reactions; 1 Cartridge. - Medication Reconciliation Form, Thank You Letter, Antibiotic Education, Prescription Opioid Use form. - Follow up: Private Physician; When: 2 - 3 days; Reason: Recheck today's complaints, Continuance of care, Re-evaluation by your physician. - Problem is new. - Symptoms have improved. Signatures: Dispatcher [employer] EDNJ Alec Coker MD MD cha Ballard, Brenda, RN RN Titus Da Silva, RN RN rr5 Corrections: (The following items were deleted from the chart) 02:22 01:35 01/21/2020 01:35 Discharged to Home. Impression: Urticaria. Condition is Stable. rr5 Forms are Medication Reconciliation Form, Thank You Letter, Antibiotic Education, Prescription Opioid Use. Follow up: Private Physician; When: 2 - 3 days; Reason: Recheck today's complaints, Continuance of care, Re-evaluation by your physician. Problem is new. Symptoms have improved. flores
--- NOTE | 2020-01-21 01:36 | ER ---
Nurse's Notes [facility] Name: Lidya Hall Age: 44 yrs Sex: Female : 1975 Arrival Date: 01/21/2020 Time: 00:48 Bed 7 Private MD: Diagnosis: Urticaria Presentation: 01/20 01:01 Chief complaint: Patient states: she has had hives for 3 days which are not going away bb and are very itchy. Coronavirus screen: At this time, the client does not indicate any symptoms associated with coronavirus-19. Ebola Screen: No symptoms or risks identified at this time. Onset: The symptoms/episode began/occurred 3 day(s) ago. Anaphylaxis evaluation, no signs or symptoms of anaphylaxis were noted. Initial Sepsis Screen: Does the patient meet any 2 criteria? No. Patient's initial sepsis screen is negative. Does the patient have a suspected source of infection? No. Patient's initial sepsis screen is negative. Risk Assessment: Do you want to hurt yourself or someone else? Patient reports no desire to harm self or others. Onset of symptoms was January 17, 2020. 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 - Social history:: Smoking status: Patient denies any tobacco usage or history of. Patient uses alcohol, occasionally. Patient/guardian denies using street drugs. - Family history:: not pertinent. Screenin:15 Abuse screen: Denies threats or abuse. Denies injuries from another. Nutritional rr5 screening: No deficits noted. Tuberculosis screening: No symptoms or risk factors identified. Fall Risk Total [place] Fall Scale indicates No Risk (0-24 pts). Assessment: 01:20 General: Appears in no apparent distress. uncomfortable, Behavior is calm, cooperative, rr5 appropriate for age. Pain: Denies pain. Neuro: Level of Consciousness is awake, alert, obeys commands, Oriented to person, place, time, situation. Cardiovascular: Capillary refill < 3 seconds Patient's skin is warm and dry. Respiratory: Airway is patent Trachea midline Respiratory effort is even, unlabored, Respiratory pattern is regular, symmetrical, Denies shortness of breath. GI: No signs and/or symptoms were reported involving the gastrointestinal system. : No signs and/or symptoms were reported regarding the genitourinary system. EENT: Throat is clear is pink with gag reflex present. Derm: Skin temperature is warm Rash noted that is on face and whole body hives. Musculoskeletal: Circulation, motion, and sensation intact. Capillary refill < 3 seconds. 01:41 Reassessment: Patient appears in no apparent distress at this time. Patient is alert, rr5 oriented x 3, equal unlabored respirations, skin warm/dry/pink. for discharge awaiting for blood exam results. Vital Signs: 01:01 BP 152 / 81; Pulse 112; Resp 18 S; Temp 97.7(O); Pulse Ox 100% on R/A; Weight 68.04 kg bb (R); Height 4 ft. 9 in. (144.78 cm) (R); Pain 0/10; 01:22 BP 134 / 85; Pulse 105; Resp 19; Pulse Ox 100% ; rr5 02:21 BP 122 / 65; Pulse 99; Resp 16; Pulse Ox 99% ; rr5 01:01 Body Mass Index 32.46 (68.04 kg, 144.78 cm) ED Course: 00:48 Patient arrived in ED. bp1 00:50 Alec Coker MD is Attending Physician. flores 01:03 Triage completed. bb 01:03 Arm band placed on Patient placed in an exam room, on a stretcher, on pulse oximetry. bb Family accompanied patient. 01:06 Titus Alicea, RN is Primary Nurse. rr5 01:15 No provider procedures requiring assistance completed. Inserted saline lock: 20 gauge rr5 in right hand, using aseptic technique. Blood collected. 01:20 Patient has correct armband on for positive identification. Call light in reach. rr5 02:22 IV discontinued, intact, bleeding controlled, No redness/swelling at site. Pressure rr5 dressing applied. Administered Medications: 01:15 Drug: NS 0.9% 1000 ml Route: IV; Rate: 1 bolus; Site: right hand; rr5 02:21 Follow up: Response: No adverse reaction; IV Status: Completed infusion; IV Intake: rr5 1000ml 01:16 Drug: Pepcid 40 mg Route: IVP; Site: right hand; rr5 02:21 Follow up: Response: No adverse reaction rr5 01:19 Drug: SOLU-Medrol 125 mg Route: IVP; Site: right hand; rr5 02:21 Follow up: Response: No adverse reaction rr5 01:22 Drug: Benadryl 25 mg Route: IVP; Site: right hand; rr5 02:20 Follow up: Response: No adverse reaction rr5 01:23 Drug: predniSONE 60 mg Route: PO; rr5 02:21 Follow up: Response: No adverse reaction rr5 01:24 Not Given (Other Intervention Used): Benadryl 50 mg IVP once rr5 Intake: 02:21 IV: 1000ml; Total: 1000ml. rr5 Outcome: 01:35 Discharge ordered by MD. tanner 02:22 Discharged to home ambulatory. rr5 02:22 Condition: stable 02:22 Discharge instructions given to patient, Instructed on discharge instructions, follow up and referral plans. medication usage, Demonstrated understanding of instructions, follow-up care, medications, Prescriptions given X 4. 02:22 Patient left the ED. rr5 Signatures: Alec Coker MD MD cha Ballard, Brenda RN RN Titus Da Silva RN RN rr5 Ayaka Braun
[2020-01-21 01:39] LABS: Absolute Lymphocytes (CBC) 5.2 K/uL (0.7-4.9); Basophils % 0.9 % (0-1.3); Hematocrit 40.7 % (36.0-45.0); Lymphocytes % 47.8 % (15.3-44.8); MPV 8.9 fL (7.6-11.3); RBC Red Blood Cell Count 5.24 M/uL (3.86-4.86)
[2020-01-21 01:46] LABS: Potassium 3.2 mmol/L (3.5-5.1)
[2020-01-21 04:24] VITALS: TEMP 97.7
[2020-01-21 04:32] VITALS: BP 122/65; O2SAT 99
== END 2020-01-21 02:22 | disposition home or self-care (01) ==
LOC: ER 00:46
DX: L50.9 Urticaria, unspecified (principal)
CPT/HCPCS: 36415; 80048; 85025; 96361; 96374; 96375; 99284; J1200; J2930; J7030; J7512

== ENCOUNTER 2022-08-02 16:20 | Emergency (ER) | payer SELFPAY ==
[2022-08-02] MEDS ORDERED: METHYLPREDNISOLONE 125 MG INJ ONE (16:53)
[2022-08-02] MEDS ORDERED: DIPHENHYDRAMINE 50 MG/ML VIAL ONE (16:53)
[2022-08-02] MEDS ORDERED: FAMOTIDINE 20 MG/2 ML VIAL IV ONE (16:53)
[2022-08-02] MEDS ORDERED: NA CHLORIDE 0.9% 1,000 ML ONE (16:53)
--- NOTE | 2022-08-02 18:27 | ER ---
Nurse's Notes [facility] Name: Lidya Hall Age: 47 yrs Sex: Female : 1975 Arrival Date: 08/02/2022 Time: 16:20 Bed 7 Private MD: Diagnosis: Rash and other nonspecific skin eruption Presentation: 08/02 16:25 Chief complaint: Patient states: BLE HIVES SINCE LAST PM. Coronavirus screen: At this bp time, the client does not indicate any symptoms associated with coronavirus-19. Ebola Screen: No symptoms or risks identified at this time. Onset: The symptoms/episode began/occurred last night. Anaphylaxis evaluation, no signs or symptoms of anaphylaxis were noted. Initial Sepsis Screen: Does the patient meet any 2 criteria? No. Patient's initial sepsis screen is negative. Does the patient have a suspected source of infection? No. Patient's initial sepsis screen is negative. Risk Assessment: Do you want to hurt yourself or someone else? Patient reports no desire to harm self or others. Onset of symptoms was August 02, 2022. 16:25 Method Of Arrival: Ambulatory bp 16:25 Acuity: SOL 3 bp Historical: - Allergies: 16:27 No Known Allergies; bp - Home Meds: 16:27 None [Active]; bp - PMHx: 16:27 None; bp - PSHx: 16:27 TUMOR RESECTION, RLE; Appendectomy; Ligation of fallopian tube; bp - Immunization history:: Adult Immunizations up to date. - Social history:: Smoking status: Patient denies any tobacco usage or history of. Screenin:59 [facility] ED Fall Risk Assessment (Adult) History of falling in the last 3 months, jl7 including since admission No falls in past 3 months (0 pts) Confusion or Disorientation No (0 pts) Intoxicated or Sedated No (0 pts) Impaired Gait No (0 pts) Mobility Assist Device Used No (0 pt) Altered Elimination No (0 pt) Score/Fall Risk Level 0 - 2 = Low Risk Oriented to surroundings, Maintained a safe environment. Abuse screen: Denies threats or abuse. Denies injuries from another. Nutritional screening: No deficits noted. Tuberculosis screening: No symptoms or risk factors identified. Assessment: 16:59 General: Appears in no apparent distress. uncomfortable, Behavior is calm, cooperative. jl7 Pain: Denies pain. Neuro: Level of Consciousness is awake, alert, obeys commands, Oriented to person, place, time, situation. Cardiovascular: Patient's skin is warm and dry. Respiratory: Airway is patent Respiratory effort is even, unlabored, Respiratory pattern is regular, symmetrical, Breath sounds are clear. Derm: Skin is pink, warm \T\ dry. Reports itching. 17:14 Reassessment: Patient appears in no apparent distress at this time. No changes from ld1 previously documented assessment. Patient and/or family updated on plan of care and expected duration. Pain level reassessed. Patient is alert/active/playful, equal unlabored respirations, skin warm/dry/pink. Vital Signs: 16:25 BP 177 / 101; Pulse 102; Resp 24; Temp 98; Pulse Ox 100% ; bp 17:14 BP 157 / 80; Pulse 77; Resp 18; Pulse Ox 100% on R/A; ld1 ED Course: 16:21 Patient arrived in ED. am2 16:21 Abdoul Dubon PA is PHCP. [facility] 16:21 Dmitry Muller MD is Attending Physician. [facility] 16:26 Triage completed. bp 16:27 Arm band placed on. bp 16:59 Patient has correct armband on for positive identification. Pulse ox on. NIBP on. jl7 18:34 No provider procedures requiring assistance completed. IV discontinued, intact, ld1 bleeding controlled, No redness/swelling at site. Administered Medications: 17:00 Drug: Famotidine IVP 20 mg Route: IVP; Site: right hand; jl7 17:01 Drug: MethylPrednisoLONE IVP 125 mg Route: IVP; Site: right hand; jl7 17:01 Drug: NS 0.9% IV 1000 ml Route: IV; Rate: 1 bolus; Site: right hand; jl7 17:01 Drug: diphenhydrAMINE IVP 25 mg Route: IVP; Site: right hand; jl7 Medication: 16:59 VIS not applicable for this client. jl7 Outcome: 18:27 Discharge ordered by . [facility] 18:34 Discharged to home ambulatory, with family. ld1 18:34 Condition: stable 18:34 Discharge instructions given to patient, family, Instructed on discharge instructions, follow up and referral plans. medication usage, Demonstrated understanding of instructions, follow-up care, medications, Prescriptions given X 2. 18:35 Patient left the ED. ld1 Signatures: Abdoul Dubon PA PA jmm Leal, Jahala RN RN jl7 Ananya Longoria Brian, RN RN bp Karlene Cabrera RN RN ld1
--- NOTE | 2022-08-02 18:28 | EDPHYS ---
Physician Documentation [facility] Name: Lidya Hall Age: 47 yrs Sex: Female : 1975 Arrival Date: 08/02/2022 Time: 16:20 Bed 7 Private MD: ED Physician Dmitry Muller HPI: 08/02 16:25 This 47 yrs old Female presents to ER via Ambulatory with complaints of jmm Allergic Reaction, Hives. 16:25 Onset: The symptoms/episode began/occurred gradually. Is a 47-year-old female with no jmm chronic medical conditions presents emerged part with complaints of hives to her legs. Denies any shortness of breath. Patient has had this happen to her before. Denies any recent new medication or known allergen exposure.. Historical: - Allergies: 16:27 No Known Allergies; bp - Home Meds: 16:27 None [Active]; bp - PMHx: 16:27 None; bp - PSHx: 16:27 TUMOR RESECTION, RLE; Appendectomy; Ligation of fallopian tube; bp - Immunization history:: Adult Immunizations up to date. - Social history:: Smoking status: Patient denies any tobacco usage or history of. ROS: 16:25 Constitutional: Negative for fever, chills, and weight loss, Cardiovascular: Negative jmm for chest pain, palpitations, and edema, Respiratory: Negative for shortness of breath, cough, wheezing, and pleuritic chest pain. 16:25 Skin: Positive for rash. 16:25 All other systems are negative. Exam: 16:25 Constitutional: This is a well developed, well nourished patient who is awake, alert, jmm and in no acute distress. Head/Face: atraumatic. Eyes: EOMI, no conjunctival erythema appreciated ENT: Moist Mucus Membranes Neck: Trachea midline, Supple Chest/axilla: Normal chest wall appearance and motion. Cardiovascular: Regular rate and rhythm. No edema appreciated Respiratory: Normal respirations, no respiratory distress appreciated Abdomen/GI: Non distended Back: Normal ROM 16:25 Skin: Urticaria noted to the legs bilaterally. 16:25 Neuro: Orientation: is normal, Mentation: is normal, Memory: is normal. 16:25 Psych: Behavior/mood is pleasant, cooperative. Vital Signs: 16:25 BP 177 / 101; Pulse 102; Resp 24; Temp 98; Pulse Ox 100% ; bp 17:14 BP 157 / 80; Pulse 77; Resp 18; Pulse Ox 100% on R/A; ld1 MDM: 16:25 Patient medically screened. m 18:26 Differential diagnosis: Urticaria. Data reviewed: vital signs, nurses notes. I jeimy considered the following discharge prescriptions or medication management in the emergency department Medications were administered in the Emergency Department. See MAR. Counseling: I had a detailed discussion with the patient and/or guardian regarding: the historical points, exam findings, and any diagnostic results supporting the discharge/admit diagnosis, the need for outpatient follow up, to return to the emergency department if symptoms worsen or persist or if there are any questions or concerns that arise at home. ED course: Decreased hives on reevaluation. Patient states feeling much better. Patient advised follow-up PCP otherwise given strict return precautions. Patient understood and agrees plan of care.. 08/02 16:29 Order name: Saline Lock; Complete Time: 16:39 [facility] Administered Medications: 17:00 Drug: Famotidine IVP 20 mg Route: IVP; Site: right hand; jl7 17:01 Drug: MethylPrednisoLONE IVP 125 mg Route: IVP; Site: right hand; jl7 17:01 Drug: NS 0.9% IV 1000 ml Route: IV; Rate: 1 bolus; Site: right hand; jl7 17:01 Drug: diphenhydrAMINE IVP 25 mg Route: IVP; Site: right hand; jl7 Disposition Summary: 08/02/22 18:27 Discharge Ordered Location: Home [facility] Condition: Stable [facility] Diagnosis - Rash and other nonspecific skin eruption [facility] Followup: jm - With: Private Physician - When: 2 - 3 days - Reason: Recheck today's complaints, Continuance of care, Re-evaluation by your physician Discharge Instructions: - Discharge Summary Sheet [facility] - Hives [facility] Forms: - Medication Reconciliation Form [facility] - Thank You Letter [facility] - Antibiotic Education [facility] - Prescription Opioid Use [facility] Prescriptions: - Hydroxyzine HCl 25 mg Oral Tablet - take 1 tablet by ORAL route every 6 hours As needed; 30 tablet; Refills: 0, [facility] Product Selection Permitted - Prednisone 20 mg Oral Tablet - take 3 tablets by ORAL route once daily for 5 days; 15 tablet; Refills: 0, [facility] Product Selection Permitted Signatures: Abdoul Dubon PA PA jmm Leal, Jahala, RN RN jl7 Frank Segura, RN RN bp
[2022-08-02 18:52] VITALS: TEMP 98; O2SAT 100
[2022-08-02 18:53] VITALS: BP 157/80
== END 2022-08-02 18:35 | disposition home or self-care (01) ==
LOC: ER 16:20
DX: R21 Rash and other nonspecific skin eruption (principal)
CPT/HCPCS: 96374; 96375; 99284; J1200; J2930; J7030

== ENCOUNTER 2022-08-07 12:18 | Emergency (ER) | payer SELFPAY ==
[2022-08-07] MEDS ORDERED: ONDANSETRON 4 MG/2 ML VIAL ONE (14:13)
--- NOTE | 2022-08-07 14:18 | RAD REPORT ---
EXAM DESCRIPTION: CT - Head Brain Wo Cont - 08/07/2022 1:45 pm CLINICAL HISTORY: CONFUSED COMPARISON: Ct Stroke Brain Wo Cont dated 08/01/2017 TECHNIQUE: Noncontrast head CT images ad were obtained without IV contrast. Multiplanar reformats we re generated and reviewed. All CT scans are performed using dose optimization technique as appropriate and may include automated exposure control or mA/KV adjustment according to patient size. FINDINGS: No intracranial hemorrhage, mass, or edema. Midline structures are unremarkable. Normal ventricular caliber for age. Lopez-white matter differentiation is preserved, without evidence of acute infarct. No abnormal extra- axial fluid collections. Mastoid air cells and visualized portions of the paranasal sinuses are clear. No acute bony findings. IMPRESSION: No evidence of an acute intracranial process.
--- NOTE | 2022-08-07 14:42 | RAD REPORT ---
EXAM DESCRIPTION: MRI - Brain Wo Cont - 08/07/2022 2:07 pm CLINICAL HISTORY: CONFUSED COMPARISON: Head CT of earlier the same day. Brain MRI 08/01/2017 TECHNIQUE: Multiplanar multisequence MRI of the brain performed without IV contrast. FINDINGS: No evidence of acute infarct or other diffusion signal abnormality. No evidence of acute intracranial hemorrhage or abnormal extra-axial fluid collections. Ventricular caliber within normal for age. Midline structures are unremarkable. No white matter signal abnormalities. No mass effect or midline shift. Major vascular flow voids are preserved. Mucous retention cysts in the left maxillary sinus base. Mild patchy opacification left mastoid air c ells. IMPRESSION: No acute intracranial process. No evidence of ventriculomegaly or mass effect.
--- NOTE | 2022-08-07 14:44 | RAD REPORT ---
EXAM DESCRIPTION: Hemalathat Single View08/07/2022 2:13 pm CLINICAL HISTORY: COUGH COMPARISON: Chest Single View dated 08/01/2017 TECHNIQUE: Portable AP view of the chest. FINDINGS: The lungs show no focal consolidation. Minimal central and bibasilar streaky opacities. N o pneumothorax or effusion. The cardiomediastinal contours are unremarkable. IMPRESSION: No evidence of focal pneumonia, however streaky opacities are present centrally, suggest hilario of viral infection or reactive airway disease.
[2022-08-07 15:21] LABS: Protime INR 0.88
[2022-08-07 15:25] LABS: Absolute Lymphocytes (CBC) 5.2 K/uL (0.7-4.9); Hematocrit 40.9 % (36.0-45.0); Lymphocytes % 41.5 % (15.3-44.8); MCV 80.8 fL (80-100); RBC Red Blood Cell Count 5.06 M/uL (3.86-4.86)
[2022-08-07 15:28] LABS: Barbiturates NEGATIVE (NEGATIVE); Benzodiazepines NEGATIVE (NEGATIVE); Cocaine NEGATIVE (NEGATIVE); METHAMPHETAM NEGATIVE (NEGATIVE); Methadone NEGATIVE (NEGATIVE); Opiates NEGATIVE (NEGATIVE); Phencyclidine NEGATIVE (NEGATIVE); THC Cannibis NEGATIVE (NEGATIVE)
[2022-08-07 15:38] LABS: ALT/SGPT 93 U/L (13-56); AST/SGOT 47 U/L (15-37); Albumin 3.8 g/dL (3.4-5.0); Alkaline Phosphatase 114 U/L (45-117); BUN Blood Urea Nitrogen 10 mg/dL (7-18); Bicarbonate 27 mEq/L (21-32); Bilirubin Total 0.3 mg/dL (0.2-1.0); Glomerular Filtration Rate 112 ml/min (=/>90); Glucose Level 79 mg/dL (74-106); Magnesium 2.6 mg/dL (1.6-2.4); Potassium 3.4 mEq/L (3.5-5.1); Sodium Level 136 mEq/L (136-145); Troponin High Sensitivity 6.7 pg/mL (<58.9)
[2022-08-07 15:40] LABS: Bilirubin Direct < 0.1 mg/dL (0-0.2); Bilirubin Indirect, Calculated ND mg/dL (0.2-0.8)
[2022-08-07] MEDS ORDERED: KETOROLAC 30 MG/ML INJ ONE (16:33)
[2022-08-07 17:22] LABS: Urine Bilirubin NEGATIVE (Negative); Urine Blood Negative (Negative); Urine Clarity Clear (Clear); Urine Color Yellow (Yellow); Urine Glucose Negative (Negative)
[2022-08-07 17:23] LABS: Urine Protein Negative (Negative); Urine Urobilinogen 0.2 mg/dL (0.2-1.0)
--- NOTE | 2022-08-07 17:32 | RAD REPORT ---
EXAM DESCRIPTION: CT - Soft Tissue Neck W/Contr CLINICAL HISTORY: neck pain, hx of lymphadenopathy COMPARISON: Soft Tissue Neck W/Contr dated 01/11/2022; Head C Spine Mpr Wo Con dated 02/11/2018 TECHNIQUE: Thin axial CT images of the neck, performed following intravenous administration of 70 m L [id number]-300. Multiplanar reformats were generated and reviewed. All CT scans are performed using dose optimization technique as appropriate and may include automated exposure control or mA/KV adjustment according to patient size. FINDINGS: Nasopharyngeal tissues are normal in appearance. Fossa Rosenmller are normal. Parapharyngeal fat triangles are symmetric. Tongue base structures are normal. Epiglottis and aryepiglottic folds are normal. Piriform sinuses are well aerated. The vocal cords are normal in appearance. No suspicious adenopathy. Interval size reduction of level 1B and level 2A lymph nodes seen on the p rior exam. For reference, the largest right level 2A node now measures 9 millimeter in short axis, an d the largest on the left measures 7 millimeter in short axis. This is compared to 1.4 centimeter lupe rt axis measurement bilaterally on the prior exam. The largest left level 1B lymph node measures 6 mi llimeter in short axis compared to 1.3 centimeter on the prior exam. Salivary glands are normal in appearance. Mucous retention cyst in the left maxillary sinus. Upper lung ca are clear. Included intracranial contents are unremarkable. IMPRESSION: No acute abnormality. No suspicious mucosal mass or adenopathy. Interval improvement of upper cervical adenopathy since the prior exam.
--- NOTE | 2022-08-07 17:46 | ER ---
Nurse's Notes [facility] Name: Lidya Hall Age: 47 yrs Sex: Female : 1975 Arrival Date: 08/07/2022 Time: 12:18 Bed 19 Private MD: Diagnosis: Weakness Presentation: 08/07 12:49 Chief complaint: Patient states: "I started having pain in my back 3 days ago, a really mb9 bad headache, felt a little tingling in my face, dazed, and felt tingling in my left hand yesterday. I feel lost and like I'm on drugs or alcohol but I didn't take anything. This happened to me a few years ago but I don't remember what they diagnosed me with". Coronavirus screen: Vaccine status: Patient reports being unvaccinated. Ebola Screen: No symptoms or risks identified at this time. Initial Sepsis Screen: Does the patient meet any 2 criteria? No. Patient's initial sepsis screen is negative. Does the patient have a suspected source of infection? No. Patient's initial sepsis screen is negative. Risk Assessment: Do you want to hurt yourself or someone else? Patient reports no desire to harm self or others. Onset of symptoms was August 07, 2022. 12:49 Method Of Arrival: Ambulatory 9 12:49 Acuity: SOL 3 mb9 Triage Assessment: 12:53 General: Appears uncomfortable, Behavior is anxious, drowsy. Pain: Complains of pain in mb9 back. Neuro: [place] Agitation-Sedation Scale (RASS): 0 - Alert and Calm Level of Consciousness is awake, alert, obeys commands, Oriented to person, place, time, situation, Appropriate for age Sheet Rock Taper are equal bilaterally Weakness in bilateral leg(s) Gait is unsteady, Speech is normal, Facial symmetry appears normal, Pupils are PERRLA, Tingling in left hand. Respiratory: Airway is patent Respiratory effort is even, unlabored, Respiratory pattern is regular, symmetrical. GI: Reports nausea. Derm: Skin is pink, warm \\T\\ dry. Musculoskeletal: Range of motion: intact in all extremities. Historical: - Allergies: 12:52 No Known Allergies; mb9 - Home Meds: 12:52 None [Active]; mb9 - PMHx: 12:52 None; mb9 - PSHx: 12:52 Appendectomy; Ligation of fallopian tube; TUMOR RESECTION, RLE; mb9 - Immunization history:: Adult Immunizations up to date. - Social history:: Smoking status: Patient denies any tobacco usage or history of. Patient uses marijuana . Screenin:30 [facility] ED Fall Risk Assessment (Adult) History of falling in the last 3 months, vg1 including since admission No falls in past 3 months (0 pts). Abuse screen: Denies threats or abuse. Denies injuries from another. Nutritional screening: No deficits noted. Tuberculosis screening: No symptoms or risk factors identified. Assessment: 14:30 General: Appears in no apparent distress. uncomfortable, Behavior is calm, cooperative. vg1 Pain: Complains of pain in head, left arm, left leg Pain currently is 7 out of 10 on a pain scale. Pain began 2-3 days ago. Neuro: Level of Consciousness is awake, alert, obeys commands, Oriented to person, place, time, situation, Sheet Rock Taper are weak on left Moves all extremities. Speech is normal, Facial symmetry appears normal, Numbness in left arm, left leg, face. Cardiovascular: Patient's skin is warm and dry. Respiratory: Airway is patent Respiratory effort is even, unlabored. GI: Reports nausea. : No signs and/or symptoms were reported regarding the genitourinary system. EENT: No signs and/or symptoms were reported regarding the EENT system. Derm: Skin is pink, warm \\T\\ dry. Musculoskeletal: Circulation, motion, and sensation intact. 15:00 Reassessment: Patient appears in no apparent distress at this time. No changes from vg1 previously documented assessment. Patient and/or family updated on plan of care and expected duration. Pain level reassessed. Patient is alert, oriented x 3, equal unlabored respirations, skin warm/dry/pink. 16:43 Reassessment: Patient appears in no apparent distress at this time. No changes from vg1 previously documented assessment. Patient and/or family updated on plan of care and expected duration. Pain level reassessed. Patient is alert, oriented x 3, equal unlabored respirations, skin warm/dry/pink. 18:00 Reassessment: Patient appears in no apparent distress at this time. No changes from vg1 previously documented assessment. Patient and/or family updated on plan of care and expected duration. Pain level reassessed. Patient is alert, oriented x 3, equal unlabored respirations, skin warm/dry/pink. Vital Signs: 12:49 BP 136 / 95; Pulse 89; Resp 18; Temp 98.6(O); Pulse Ox 100% ; Weight 68.04 kg; Height 4 mb9 ft. 9 in. ; 14:55 BP 165 / 82; Pulse 74; Resp 16; Pulse Ox 100% on R/A; vg1 16:30 BP 130 / 80; Pulse 78; Resp 14; Pulse Ox 100% on R/A; vg1 18:00 BP 132 / 89; Pulse 70; Resp 16; Pulse Ox 100% on R/A; vg1 12:49 Body Mass Index 32.46 (68.04 kg, 144.78 cm) mb9 ED Course: 12:22 Patient arrived in ED. mr 12:24 Dmitry Muller MD is Attending Physician. bs3 12:51 Triage completed. mb9 12:51 Arm band placed on. mb9 13:46 CT Head Brain wo Cont In Process Unspecified. EDMS 13:57 Renuka Hodge, RN is Primary Nurse. vg1 14:00 MRI - Brain Wo Cont In Process Unspecified. EDMS 14:14 Stroke CXR 1 View In Process Unspecified. EDMS 14:30 Patient has correct armband on for positive identification. Bed in low position. Call vg1 light in reach. Side rails up X2. Adult w/ patient. Client placed on continuous cardiac and pulse oximetry monitoring. NIBP monitoring applied. 14:30 No provider procedures requiring assistance completed. vg1 14:43 Inserted saline lock: 22 gauge in left wrist, using aseptic technique. vg1 17:09 CT Soft Tissue Neck W/contr In Process Unspecified. EDMS 17:45 Cody Quigley MD is Referral Physician. bs3 18:26 IV discontinued, intact, bleeding controlled. vg1 Administered Medications: 14:45 Drug: Ondansetron IVP 4 mg Route: IVP; Site: left wrist; vg1 16:17 Follow up: Response: No adverse reaction; Marked relief of symptoms vg1 16:40 Drug: Ketorolac IVP 15 mg Route: IVP; Site: left wrist; vg1 18:26 Follow up: Response: No adverse reaction; Pain is decreased vg1 Medication: 14:30 VIS not applicable for this client. vg1 Outcome: 17:46 Discharge ordered by . bs3 18:26 Discharged to home ambulatory, with family. vg1 18:26 Condition: good 18:26 Discharge instructions given to patient, Instructed on discharge instructions, follow up and referral plans. Demonstrated understanding of instructions, follow-up care. 18:26 Patient left the ED. vg1 Signatures: Dispatcher [employer] Caprice Harvey Victoria RN RN vg1 Dmitry Muller MD MD bs3 Caprice Meredith, RN RN mb9 Corrections: (The following items were deleted from the chart) 12:53 12:52 Home Meds: Unable to obtain; mb9 mb9
--- NOTE | 2022-08-07 17:46 | EDPHYS ---
Physician Documentation [facility] Name: Lidya Hall Age: 47 yrs Sex: Female : 1975 Arrival Date: 08/07/2022 Time: 12:18 Bed 19 Private MD: ED Physician Dmitry Muller HPI: 08/07 13:43 This 47 yrs old Female presents to ER via Ambulatory with complaints of bs3 Numbness Of Face, Numbness Of Arm, Nausea, Back Pain. 13:43 47-year-old female no known past medical history seen recently for possible allergic bs3 reaction and given steroids presents with a new number of vague complaints she feels weak and tired , she has intermittent numbness of her arm leg, she feels a sharp intermittent chest pain she notes a headache she has some nausea but no vomiting. Historical: - Allergies: 12:52 No Known Allergies; mb9 - Home Meds: 12:52 None [Active]; mb9 - PMHx: 12:52 None; mb9 - PSHx: 12:52 Appendectomy; Ligation of fallopian tube; TUMOR RESECTION, RLE; mb9 - Immunization history:: Adult Immunizations up to date. - Social history:: Smoking status: Patient denies any tobacco usage or history of. Patient uses marijuana . ROS: 15:30 Constitutional: Negative for fever, chills bs3 15:30 All other systems are negative. Exam: 15:30 Normal sinus rhythm at [address] elevation or depression QTc 397 as interpreted by bs3 myself 16:09 Constitutional: This is a well developed, well nourished patient who is awake, alert, bs3 and in no acute distress. Head/Face: Normocephalic, atraumatic. Eyes: Pupils equal round and reactive to light, extra-ocular motions intact. Lids and lashes normal. ENT: mmm, no posterior phyarngeal erythema Neck: Trachea midline, no thyromegaly, no neck stiffness Chest/axilla: Normal chest wall appearance and motion. Nontender with no deformity. No lesions are appreciated. Cardiovascular: Regular rate and rhythm with a normal S1 and S2. symmetric pulses in upper extremities Respiratory: Lungs have equal breath sounds bilaterally, clear to auscultation, no respiratory distress Abdomen/GI: Soft, non-tender, no rebound or guarding Skin: Warm, dry with normal turgor. Normal color with no rashes, no lesions, and no evidence of cellulitis. MS/ Extremity: Pulses equal, no cyanosis. Neurovascular intact. Full, normal range of motion. Neuro: Awake and alert, GCS 15, oriented to person, place, time, and situation. Cranial nerves II-XII grossly intact. Motor strength 5/5 in all extremities. Sensory grossly intact. She reports pain to the left side of her body to palpation of her left arm or left leg but her sensation is tach she has good symmetric pulses in her bilateral upper extremities normal [id number] Psych: Awake, alert, with orientation to person, place and time. Behavior, mood, and affect are within normal limits. Vital Signs: 12:49 BP 136 / 95; Pulse 89; Resp 18; Temp 98.6(O); Pulse Ox 100% ; Weight 68.04 kg; Height 4 mb9 ft. 9 in. ; 14:55 BP 165 / 82; Pulse 74; Resp 16; Pulse Ox 100% on R/A; vg1 16:30 BP 130 / 80; Pulse 78; Resp 14; Pulse Ox 100% on R/A; vg1 18:00 BP 132 / 89; Pulse 70; Resp 16; Pulse Ox 100% on R/A; vg1 12:49 Body Mass Index 32.46 (68.04 kg, 144.78 cm) mb9 MDM: 12:24 Patient medically screened. bs3 16:09 Data reviewed: vital signs, nurses notes. ED course: Initially patient presented with bs3 numbness of her face complaining of fatigue however her NIH stroke scale is a 0 currently her symptoms have been going on for several days therefore an MRI will rule out of stroke her CT and labs were completely nondiagnostic I talked to the patient at length on reassessment she notes that her symptoms of been ongoing and intermittent for years she stopped following up with the [facility] as no one could figure out what was wrong she occasionally gets pain in her back as well she has no urinary incontinence bowel incontinence urinary retention saddle anesthesia she denies fevers chills night sweats or weight loss she does report some dysuria bilaterally urinalysis although this would not explain any of her other symptoms she denies depression she needs further work-up for this there is no signs of acute cauda equina she has no cancer history this could be an autoimmune disorder a neurologic disorder advised follow-up with neurology as soon as possible for further work-up. 17:45 ED course: Given the CT previously and no follow-up I did a repeat CT which showed bs3 improvement in the lymphadenopathy less likely to be cancer but advise follow-up as an outpatient of note I reviewed her test and she has been seen multiple times for back pain and other symptoms. 08/07 13:33 Order name: Basic Metabolic Panel; Complete Time: 15:51 bs3 08/07 13:33 Order name: CBC with Diff; Complete Time: 15:51 bs3 08/07 13:33 Order name: Hepatic Function; Complete Time: 15:51 bs3 08/07 13:33 Order name: High Sensitivity Troponin; Complete Time: 15:51 bs3 08/07 13:33 Order name: Magnesium; Complete Time: 15:51 bs3 08/07 13:33 Order name: Protime (+inr); Complete Time: 15:51 3 08/07 13:33 Order name: Ptt, Activated; Complete Time: 15:51 bs3 08/07 13:33 Order name: UDS; Complete Time: 15:51 bs3 08/07 13:33 Order name: TSH; Complete Time: 15:51 3 08/07 16:08 Order name: Urinalysis w/ reflexes; Complete Time: 17:44 bs3 08/07 13:33 Order name: Stroke CXR 1 View; Complete Time: 15:03 bs3 08/07 13:33 Order name: CT Head Brain wo Cont; Complete Time: 14:44 bs3 08/07 13:33 Order name: MRI - Brain Wo Cont; Complete Time: 15:03 bs3 08/07 16:24 Order name: CT Soft Tissue Neck W/contr; Complete Time: 17:44 bs3 08/07 13:33 Order name: EKG; Complete Time: 13:34 bs3 08/07 13:33 Order name: Accucheck; Complete Time: 14:51 bs3 08/07 13:33 Order name: Cardiac monitoring; Complete Time: 14:51 3 08/07 13:33 Order name: EKG - Nurse/Tech; Complete Time: 14:51 3 08/07 13:33 Order name: IV Saline Lock; Complete Time: 14:51 bs3 08/07 13:33 Order name: Labs collected and sent; Complete Time: 14:51 bs3 08/07 13:33 Order name: NPO; Complete Time: 14:51 bs3 08/07 13:33 Order name: O2 Per Protocol; Complete Time: 14:51 bs3 08/07 13:33 Order name: O2 Sat Monitoring; Complete Time: 14:51 bs3 08/07 13:33 Order name: Stroke Swallow Screen; Complete Time: 14:51 bs3 Administered Medications: 14:45 Drug: Ondansetron IVP 4 mg Route: IVP; Site: left wrist; vg1 16:17 Follow up: Response: No adverse reaction; Marked relief of symptoms vg1 16:40 Drug: Ketorolac IVP 15 mg Route: IVP; Site: left wrist; vg1 18:26 Follow up: Response: No adverse reaction; Pain is decreased vg1 Disposition Summary: 08/07/22 17:46 Discharge Ordered Location: Home bs3 Problem: new bs3 Symptoms: have improved bs3 Condition: Stable bs3 Diagnosis - Weakness bs3 Followup: bs3 - With: Cody Quigley MD - When: 2 - 3 days - Reason: Recheck today's complaints Discharge Instructions: - Discharge Summary Sheet bs3 - Weakness bs3 Forms: - Medication Reconciliation Form bs3 - Thank You Letter bs3 - Antibiotic Education bs3 - Prescription Opioid Use bs3 Signatures: Dispatcher [employer] Renuka Wall RN RN vg1 Dmitry Muller MD MD bs3 Caprice Meredith RN RN mb9 Corrections: (The following items were deleted from the chart) 12:53 12:52 Home Meds: Unable to obtain; mb9 mb9
[2022-08-07 18:33] VITALS: O2SAT 100
[2022-08-07 18:35] VITALS: TEMP 98.6
[2022-08-07 18:39] VITALS: BP 132/89
--- NOTE | 2022-08-08 12:09 | EKG ---
Test Date: 2022-08-07 Test Time: 14:30:32 Senior Web Services Developer: PRATEEK MEASUREMENT RESULTS: Intervals: Rate: 71 SC: 140 QRSD: 78 QT: 366 QTc: 397 [place]: P: 45 SC: 140 QRS: 78 T: 41 INTERPRETIVE STATEMENTS: Normal sinus rhythm Normal ECG Compared to ECG 08/01/2017 14:55:59 ST (T wave) deviation no longer present Electronically Signed On 08-08-22 12:06:05 CDT by Patrick Moss
== END 2022-08-07 18:26 | disposition home or self-care (01) ==
LOC: ER 12:18
DX: R53.1 Weakness (principal); R20.2 Paresthesia of skin
CPT/HCPCS: 36415; 70450; 70491; 70551; 71045; 80048; 80076; 80307; 81003; 83735; 84443; 84484; 85025; 85610; 85730; 93005; 96374; 96375; 99284; J2405; Q9967

== ENCOUNTER 2023-01-14 18:04 | Emergency (ER) | payer SELFPAY ==
--- OUTSIDE RECORDS SUMMARY | 2023-01-14 18:06 | XMS REPORT | Continuity of Care Document ---
:1975 Author Organization [facility] t Address [address] [address] [place] [address] Care Team Providers Name Role Phone PCP, PATIENT DOES NOT HAVE A Primary Care Physician Unavaila YOGI Mead Attending Clinician Unavailable Problems This patient has no known problems. Allergies, Adverse Reactions, Alerts Allergy Allergy Status Severity Reaction(s) Onset Inactive Treating Comm ents Source Name Type Date Date Clinician NO KNOWN [facility]ations This patient has no known medications. Procedures This patient has no known procedures. Encounters Start End Encounter Admission Attending Care Care Encounter Source Date/Time Date/Time Type Type Clinicians Facility Department ID 2022-12-09 2022-12-09 Emergency X FLORA EMERY [id number] [facility] 11:14:00 13:46:00 YOGI [facility] Results This patient has no known results.
--- NOTE | 2023-01-14 20:19 | ER ---
Nurse's Notes [facility] Name: Lidya Hall Age: 47 yrs Sex: Female : 1975 Arrival Date: 01/14/2023 Time: 18:04 Bed 12 Private MD: Diagnosis: Acute tonsillitis, unspecified Presentation: 01/14 18:24 Chief complaint: Patient states: sore throat, chills, fever, and ear pain onset last cm10 night. Coronavirus screen: Vaccine status: Patient reports being unvaccinated. Client denies travel out of the [place] in the last 14 days. Ebola Screen: Patient denies travel to an Ebola-affected area in the 21 days before illness onset. No symptoms or risks identified at this time. Initial Sepsis Screen: Does the patient meet any 2 criteria? No. Patient's initial sepsis screen is negative. Does the patient have a suspected source of infection? No. Patient's initial sepsis screen is negative. Risk Assessment: Do you want to hurt yourself or someone else? Patient reports no desire to harm self or others. Onset of symptoms was January 14, 2023. 18:24 Method Of Arrival: Ambulatory cm10 18:24 Acuity: SOL 4 cm10 Triage Assessment: 20:54 General: Appears in no apparent distress. Behavior is calm, cooperative. kd3 Historical: - Allergies: 18:26 No Known Allergies; cm10 - Home Meds: 18:27 None [Active]; cm10 - PMHx: 18:27 None; cm10 - PSHx: 18:26 Appendectomy; Ligation of fallopian tube; TUMOR RESECTION; cm10 - Immunization history:: Adult Immunizations unknown. - Social history:: Smoking status: Patient denies any tobacco usage or history of. Screenin:53 [facility] ED Fall Risk Assessment (Adult) History of falling in the last 3 months, kd3 including since admission No falls in past 3 months (0 pts) Confusion or Disorientation No (0 pts) Intoxicated or Sedated No (0 pts) Impaired Gait No (0 pts) Mobility Assist Device Used No (0 pt) Altered Elimination No (0 pt) Score/Fall Risk Level 0 - 2 = Low Risk Maintained a safe environment. Abuse screen: Denies threats or abuse. Denies injuries from another. Nutritional screening: No deficits noted. Tuberculosis screening: No symptoms or risk factors identified. Assessment: 20:53 Pain: Complains of pain in left aspect of posterior pharynx and right aspect of kd3 posterior pharynx. Respiratory: Airway is patent Respiratory effort is even, unlabored, Breath sounds are clear bilaterally. EENT: Throat is reddened. Vital Signs: 18:24 BP 150 / 82; Pulse 115; Resp 18; Temp 99.1(O); Pulse Ox 100% on R/A; Weight 68.04 kg; cm10 Pain 8/10; 18:24 Pain Scale: Adult cm10 ED Course: 18:06 Patient arrived in ED. rg4 18:06 Yan[facility] Carl FNP-C [facility]. kb 18:06 Matthew Madison MD is Attending Physician. kb 18:26 Triage completed. cm10 18:27 Arm band placed on Patient placed in waiting room. cm10 19:01 SARS-COV-2 RT PCR Sent. ld1 19:01 Flu Sent. ld1 19:01 Strep Sent. ld1 20:41 Nisa Elise RN is Primary Nurse. kd3 20:54 Patient has correct armband on for positive identification. Provided Education on: . kd3 20:54 No provider procedures requiring assistance completed. Patient did not have IV access kd3 during this emergency room visit. Administered Medications: 20:41 Drug: Dexamethasone IM 10 mg IM once Route: IM; Site: left deltoid; kd3 20:41 Drug: Ondansetron Oral Disintegrating Tablet Oral Disintegrating Tablet 4 mg PO once kd3 Route: PO; 20:46 Drug: Ketorolac IM 30 mg IM once Route: IM; Site: right gluteus; kd3 Medication: 20:54 VIS not applicable for this client. kd3 Outcome: 20:19 Discharge ordered by . kb 20:54 Discharged to home ambulatory, kd3 20:54 Condition: stable 20:54 Discharge instructions given to patient, family, Instructed on discharge instructions, follow up and referral plans. Demonstrated understanding of instructions, follow-up care, medications, 20:54 Patient left the ED. kd3 Signatures: Yaneli Carl FNP-C FNP-Zoie Guerra rg4 Karlene Cabrera RN RN ld1 Nisa Elise RN RN kd3 Chuck, Emlinda, RN RN cm10
--- NOTE | 2023-01-14 20:19 | EDPHYS ---
Physician Documentation [facility] Name: Lidya Hall Age: 47 yrs Sex: Female : 1975 Arrival Date: 01/14/2023 Time: 18:04 Bed 12 Private MD: ED Physician Matthew Madison HPI: 01/14 20:41 This 47 yrs old Female presents to ER via Ambulatory with complaints of Fever, kb Sore Throat, Ear Pain. 20:44 The patient presents with sore throat. The patient has not recently seen a physician. kb 20:44 The patient describes throat pain as constant. Onset: The symptoms/episode kb began/occurred last night. Severity of symptoms: At their worst the symptoms were moderate, in the emergency department the symptoms are unchanged. Modifying factors: The symptoms are alleviated by nothing, the symptoms are aggravated by swallowing, Patient's oral intake status: good. Associated signs and symptoms: Pertinent positives: earache, nausea, Sore throat. The patient has not experienced similar symptoms in the past. Historical: - Allergies: 18:26 No Known Allergies; cm10 - Home Meds: 18:27 None [Active]; cm10 - PMHx: 18:27 None; cm10 - PSHx: 18:26 Appendectomy; Ligation of fallopian tube; TUMOR RESECTION; cm10 - Immunization history:: Adult Immunizations unknown. - Social history:: Smoking status: Patient denies any tobacco usage or history of. ROS: 20:39 Respiratory: Negative for shortness of breath, cough, wheezing, and pleuritic chest kb pain, 20:39 Constitutional: Positive for fever, 20:39 ENT: Positive for ear pain, sore throat, 20:39 All other systems are negative, Exam: 20:39 Constitutional: This is a well developed, well nourished patient who is awake, alert, kb and in no acute distress. Head/Face: Normocephalic, atraumatic. Cardiovascular: Regular rate Respiratory: Respirations even and unlabored. No increased work of breathing. Talking in full sentences Skin: Warm, dry with normal turgor. Normal color. MS/ Extremity: Pulses equal, no cyanosis. Neurovascular intact. Full, normal range of motion. Neuro: Awake and alert, GCS 15, oriented to person, place, time, and situation. Moves all extremities. Normal gait. 20:39 ENT: External ear(s): are unremarkable, Ear canal(s): are normal, TM's: are normal, Posterior pharynx: swelling, that is moderate, erythema, that is moderate, exudate, that is mild, Vital Signs: 18:24 BP 150 / 82; Pulse 115; Resp 18; Temp 99.1(O); Pulse Ox 100% on R/A; Weight 68.04 kg; cm10 Pain 8/10; 18:24 Pain Scale: Adult cm10 MDM: 18:07 Patient medically screened. kb 20:40 Differential diagnosis: Flu, COVID, strep, tonsillitis, pharyngitis, CENTRAL SUPPLY NURSE. Data kb reviewed: vital signs, nurses notes. Test considered but Not performed: CT: CT soft tissue neck considered but swelling to tonsils is bilateral and equal. No CENTRAL SUPPLY NURSE seen. Counseling: I had a detailed discussion with the patient and/or guardian regarding the historical points, exam findings, and any diagnostic results supporting the discharge/admit diagnosis, lab results, the need for outpatient follow up, a family practitioner, to return to the emergency department if symptoms worsen or persist or if there are any questions or concerns that arise at home. 01/14 18:27 Order name: Strep kb 01/14 18:27 Order name: Flu; Complete Time: 19:46 kb 01/14 18:27 Order name: SARS-COV-2 RT PCR; Complete Time: 20:19 kb 01/14 19:41 Order name: Throat Culture EDMS Administered Medications: 20:41 Drug: Dexamethasone IM 10 mg IM once Route: IM; Site: left deltoid; kd3 20:41 Drug: Ondansetron Oral Disintegrating Tablet Oral Disintegrating Tablet 4 mg PO once kd3 Route: PO; 20:46 Drug: Ketorolac IM 30 mg IM once Route: IM; Site: right gluteus; kd3 Disposition Summary: 01/14/23 20:19 Discharge Ordered Notes: Location: Home kb Condition: Stable kb Diagnosis - Acute tonsillitis, unspecified kb Followup: kb - With: Emergency Department - When: As needed - Reason: Worsening of condition Followup: kb - With: Private Physician - When: 2 - 3 days - Reason: Recheck today's complaints, Continuance of care, Re-evaluation by your physician Discharge Instructions: - Discharge Summary Sheet kb - Tonsillitis, [id number] kb Forms: - Medication Reconciliation Form kb - Thank You Letter kb - Antibiotic Education kb - Prescription Opioid Use kb - Patient Portal Instructions kb - Leadership Thank You Letter kb Prescriptions: - Augmentin 875-125 mg Oral Tablet - take 1 tablet ORAL route every 12 hours for 10 days; 20 tablet; Refills: 0, kb Product Selection Permitted Addendum: 01/18/2023 07:59 I was immediately available for consultation during this patient's visit. I did not e c2 personally see the patient or guide the patient's care. . Signatures: Dispatcher [employer] EDYaneli Laguerre, SHERLYN-C SHERLYN-Nisa Hudson RN RN kd3 Melinda Woods RN RN cm10 Matthew Madison MD MD ec2
[2023-01-14] MEDS ORDERED: dexAMETHasone 10 MG/ML VIAL ONE (20:49)
[2023-01-14] MEDS ORDERED: ONDANSETRON 4 MG (ODT) TAB ONE (20:50)
[2023-01-14] MEDS ORDERED: KETOROLAC 30 MG/ML INJ ONE (20:55)
[2023-01-14 21:16] VITALS: BP 150/82; TEMP 99.1; O2SAT 100
== END 2023-01-14 20:54 | disposition home or self-care (01) ==
LOC: ER 18:04
DX: J03.90 Acute tonsillitis, unspecified (principal); Z11.52 Encounter for screening for COVID-19
CPT/HCPCS: 87070; 87081; 87635; 87804; 96372; 99284; J1100; Q0162

== ENCOUNTER 2023-08-07 04:59 | Emergency (ER) | payer SELFPAY ==
--- OUTSIDE RECORDS SUMMARY | 2023-08-07 05:02 | XMS REPORT | Continuity of Care Document ---
Author Name Unknown Address [address] [place] [address]. [address] [facility] Address [address] [facility] [address] [place] [address] Care Team Providers Care Cattle Manager Name Role Phone PCP, PATIENT DOES NOT HAVE A Primary Care Physic van Unavailable YOGI EMERY Attending Clinician Unavailable Allergies, Adverse Reactions, Alerts Allergy Name Allergy Type Status Severity Reaction(s) Onset Date Inactive Date Treating Clinician Comments Source NO KNOWN ALLERGIE S Drug Class Active [facility] Encounters Start Date/Time End Date/Time Encounter Type Admission Type Attending Clinicians Care Facility Care Department Encounter ID Source 2022-12-09 11:14:00 2022-12-09 13:46:00 Emergency X YOGI EMERY [facility] ERT [id number] [facility]
[2023-08-07 05:55] LABS: Absolute Eosinophils 0.1 K/uL (0-0.5); Absolute Lymphocytes (CBC) 1.6 K/uL (0.7-4.9); Absolute Monocytes 0.5 K/uL (0.1-1.3); Absolute Neutrophil 10.9 K/uL (1.8-8.0); Basophils % 0.2 % (0-1.3); Eosinophils % 0.5 % (0-4.4); Hematocrit 33.3 % (36.0-45.0); Hemoglobin 10.5 g/dL (12.0-15.0); Lymphocytes % 12.4 % (15.3-44.8); MCH 21.8 pg (27.0-35.0); MCHC 31.6 g/dL (32.0-36.0); MPV 8.1 fL (7.6-11.3); Monocytes % 4.1 % (3.3-12.3); Neutrophils % 82.8 % (41.7-73.7); Platelets 451 thou/uL (152-406); RBC Red Blood Cell Count 4.83 M/uL (3.86-4.86); Red Cell Distribution Width 17.6 % (12.1-15.2)
[2023-08-07 06:09] LABS: Albumin 3.2 g/dL (3.4-5.0); Albumin/Globulin Ratio 0.8 (1.1-1.8); Anion Gap 6.2 mEq/L (5.0-15.0); Bilirubin Total 0.2 mg/dL (0.2-1.0); Potassium 3.2 mEq/L (3.5-5.1); Protein, Total 7.2 g/dL (6.4-8.2)
[2023-08-07 06:13] LABS: Specific Gravity 1.022 (1.005-1.030); Urine Bacteria None Seen /HPF (<20); Urine Bilirubin NEGATIVE (Negative); Urine Blood Trace (Negative); Urine Clarity Extremely Turbid (Clear); Urine Color Light-Yellow (Yellow); Urine Culture Reflex Order NOT NEEDED; Urine Glucose 2+ (Negative); Urine Ketones TRACE (Negative); Urine Microscopic Reflex YN ORDER UMIC; Urine Mucus Slight /HPF (None Seen); Urine Nitrite NEGATIVE (Negative); Urine Protein TRACE (Negative); Urine Urobilinogen Normal (Normal); Urine WBC <5 /HPF (<5); Urine pH 6.5 (5.0-7.0)
[2023-08-07] MEDS ORDERED: methocarbamoL 500 MG TAB ONE (06:17)
[2023-08-07] MEDS ORDERED: METHYLPREDNISOLONE 125 MG INJ ONE (06:17)
[2023-08-07] MEDS ORDERED: AZITHROMYCIN 250 MG TAB ONE (06:17)
[2023-08-07] MEDS ORDERED: CEFTRIAXONE 1000 MG/VIAL ONE (06:17)
[2023-08-07] MEDS ORDERED: MORPHINE 4 MG/ML SYR ONE (06:18)
[2023-08-07] MEDS ORDERED: KETOROLAC 30 MG/ML INJ ONE (06:18)
[2023-08-07] MEDS ORDERED: NA CHLORIDE 0.9% 1,000 ML ONE (06:18)
[2023-08-07] MEDS ORDERED: FAMOTIDINE 20 MG/2 ML VIAL IV ONE (06:18)
[2023-08-07] MEDS ORDERED: ONDANSETRON 4 MG/2 ML VIAL ONE (06:19)
[2023-08-07 06:46] LABS: White Blood Cell Scan OK (OK)
[2023-08-07 06:47] LABS: Blood Morphology Comment NOTED (NOT SEEN); Hypochromasia 1+; Microcytosis 1+; Platelet Estimate INCR
--- NOTE | 2023-08-07 07:09 | ER ---
Nurse's Notes [facility] Name: Lidya Hall Age: 48 yrs Sex: Female : 1975 Arrival Date: 08/07/2023 Time: 04:59 Bed 5 Private MD: Diagnosis: Acute streptococcal tonsillitis, unspecified;Acute pharyngitis, acute UTI, body aches, Presentation: 08/06 05:33 Chief complaint: Patient states: My throat hurts really bad, I have a headache, back vc1 ache, and having to pee a lot. Coronavirus screen: Vaccine status: Patient reports being unvaccinated. At this time, the client does not indicate any symptoms associated with coronavirus-19. Ebola Screen: Patient negative for fever greater than or equal to 101.5 degrees Fahrenheit, and additional compatible Ebola Virus Disease symptoms Patient denies exposure to infectious person. Patient denies travel to an Ebola-affected area in the 21 days before illness onset. No symptoms or risks identified at this time. Initial Sepsis Screen: Does the patient meet any 2 criteria? HR > 90 bpm. No. Patient's initial sepsis screen is negative. Does the patient have a suspected source of infection? No. Patient's initial sepsis screen is negative. Risk Assessment: Do you want to hurt yourself or someone else? Patient reports no desire to harm self or others. Onset of symptoms was August 07, 2023. 05:33 Method Of Arrival: Ambulatory 1 05:33 Acuity: SOL 3 vc1 Triage Assessment: 05:44 Headache History: The patient has had previous headaches and this one is similar to 1 previous episodes. General: Appears in no apparent distress. uncomfortable, Behavior is calm, cooperative, appropriate for age. Pain: Complains of pain in headache, throat, back Pain currently is 10 out of 10 on a pain scale. Quality of pain is described as sharp, Pain began suddenly, 1 day ago. Also complains of nausea. EENT: Throat has patchy exudate. Neuro: Level of Consciousness is awake, alert, obeys commands, Oriented to person, place, time, situation, Appropriate for age. Respiratory: Airway is patent Respiratory effort is even, unlabored, Respiratory pattern is regular, symmetrical. Historical: - Allergies: 05:41 No Known Allergies; vc1 - Home Meds: 05:41 None [Active]; vc1 - PMHx: 05:41 None; vc1 - PSHx: 05:41 Appendectomy; Ligation of fallopian tube; TUMOR RESECTION; vc1 - Immunization history:: Adult Immunizations up to date. - Infectious Disease History:: Denies. - Social history:: Smoking status: Patient denies any tobacco usage or history of. - Family history:: not pertinent. Screenin:43 [facility] ED Fall Risk Assessment (Adult) History of falling in the last 3 months, vc1 including since admission No falls in past 3 months (0 pts) Confusion or Disorientation No (0 pts) Intoxicated or Sedated No (0 pts) Impaired Gait No (0 pts) Mobility Assist Device Used No (0 pt) Altered Elimination No (0 pt) Score/Fall Risk Level 0 - 2 = Low Risk Oriented to surroundings, Maintained a safe environment, Educated pt \T\ family on fall prevention, incl call for assistance when getting out of bed. Abuse screen: Denies threats or abuse. Nutritional screening: No deficits noted. Tuberculosis screening: No symptoms or risk factors identified. Assessment: 06:31 Reassessment: ASSUMED CARE OF PT. PT LYING IN BED. C/O OF THROAT AND BACK PAIN. VS jj7 STABLE. FAMILY AT BEDSIDE. CALL CHAMBERS IN REACH. General: Appears in no apparent distress. uncomfortable, Behavior is calm, cooperative, appropriate for age. Pain: Complains of pain in back and neck. Musculoskeletal: Reports pain in back since 1 WEEK. Vital Signs: 05:33 BP 142 / 65; Pulse 111; Resp 18; Temp 98.5; Pulse Ox 99% ; Weight 68.04 kg; Height 4 vc1 ft. 9 in. ; Pain 10/10; 06:20 BP 125 / 83; Pulse 81; Resp 20; Pulse Ox 100% ; Pain 10/10; jj7 05:33 Body Mass Index 32.46 (68.04 kg, 144.78 cm) vc1 05:33 Pain Scale: Adult vc1 06:20 Pain Scale: Adult jj7 Massimo Coma Score: 07:04 Eye Response: spontaneous(4). Motor Response: obeys commands(6). Verbal Response: sp4 oriented(5). Total: 15. 07:06 Eye Response: spontaneous(4). Motor Response: obeys commands(6). Verbal Response: sp4 oriented(5). Total: 15. ED Course: 05:05 Patient arrived in ED. gm2 05:14 Waqas Zamudio MD is Attending Physician. sp4 05:41 Triage completed. vc1 05:43 Arm band placed on right wrist. vc1 05:44 No provider procedures requiring assistance completed. vc1 05:47 Inserted saline lock: 22 gauge in left wrist, using aseptic technique. vk 05:48 Initial lab(s) drawn, by me, sent to lab. Urine collected: clean catch specimen, clear. vk 05:48 CBC with Diff Sent. vk 05:48 CMP Sent. vk 05:48 Lipase Sent. vk 05:48 Urinalysis w/ reflexes Sent. vk 06:31 Patient has correct armband on for positive identification. Bed in low position. Call jj7 light in reach. Adult w/ patient. Provided Education on: USE OF CALL CHAMBERS. Client placed on continuous cardiac and pulse oximetry monitoring. NIBP monitoring applied. 07:07 Ganesh Leonard DO is Referral Physician. sp4 07:09 Analy Little, SULEMA is Primary Nurse. ko1 07:20 IV discontinued, intact, bleeding controlled, No redness/swelling at site. Pressure ko1 dressing applied. Administered Medications: 06:30 Drug: Methocarbamol PO 1500 mg PO once Route: PO; jj7 07:05 Follow up: Response: No adverse reaction ko1 06:30 Drug: Rocephin - Rocephin (cefTRIAXone) IVPB 1 grams IVPB once over 30 mins; (mix in 50 jj7 mL NS) Route: IVPB; Infused Over: 30 mins; Site: left hand; 06:30 Drug: AZITHromycin PO 500 mg PO once Route: PO; jj7 07:05 Follow up: Response: No adverse reaction ko1 06:30 Drug: Ondansetron IVP 4 mg IVP once; over 2 minutes Route: IVP; Site: left hand; jj7 07:00 Follow up: Response: No adverse reaction ko1 06:31 Drug: NS 0.9% IV 1000 ml IV at 1 bolus Per protocol; 1000 mL bolus Route: IV; Rate: 1 jj7 bolus; Site: left hand; 07:05 Follow up: Response: No adverse reaction; IV Status: Completed infusion; IV Intake: ko1 1000ml 06:31 Drug: morphine IVP or IV 4 mg IVP once over 4 mins Route: IVP; Infused Over: 4 mins; jj7 Site: left hand; 07:00 Follow up: Response: No adverse reaction ko1 07:00 Follow up: Response: RASS: Drowsy (-1) ko1 06:31 Drug: Ketorolac IVP 30 mg IVP once Route: IVP; Site: left hand; jj7 07:00 Follow up: Response: No adverse reaction ko1 06:31 Drug: MethylPrednisoLONE IVP 125 mg IVP once Route: IVP; Site: left hand; jj7 07:00 Follow up: Response: No adverse reaction ko1 06:31 Drug: Famotidine IVP 20 mg IVP once; dilute with 10 mL 0.9% NaCl; give over 2 minutes jj7 Route: IVP; Site: left hand; 07:00 Follow up: Response: No adverse reaction ko1 07:18 Drug: Flatgap PO 10 mg-325 mg 1 tabs PO once Route: PO; ko1 07:37 Follow up: Response: No adverse reaction ko1 Medication: 05:44 VIS not applicable for this client. vc1 Intake: 07:05 IV: 1000ml; Total: 1000ml. ko1 Outcome: 07:08 Discharge ordered by MD. regalado 07:20 Discharged to home ambulatory, with family, ko1 07:20 Condition: stable 07:20 Discharge instructions given to patient, family, Instructed on discharge instructions, follow up and referral plans. medication usage, Demonstrated understanding of instructions, follow-up care, medications, 07:20 Prescriptions given X x5 ko1 07:46 Patient left the ED. ko1 Signatures: Frida Chung RN RN vc1 Analy Little RN RN ko1 Jackie Craven RN RN jj7 Waqas Zamudio MD MD sp4 Sandy Pulido Vivian vk
--- NOTE | 2023-08-07 07:09 | EDPHYS ---
Physician Documentation [facility] Name: Lidya Hall Age: 48 yrs Sex: Female : 1975 Arrival Date: 08/07/2023 Time: 04:59 Bed 5 Private MD: ED Physician Waqas Zamudio HPI: 08/06 05:14 This 48 yrs old Female presents to ER via Unassigned with complaints of sp4 Headache, Fever, Sore Throat, Back Pain, Shoulder Pain. 07:04 48-year-old female presents with moderate to severe sore Folet onset acutely yesterday sp4 associated with body aches, subjective fever back pain shoulder pain and headache. . Historical: - Allergies: 05:41 No Known Allergies; vc1 - Home Meds: 05:41 None [Active]; vc1 - PMHx: 05:41 None; vc1 - PSHx: 05:41 Appendectomy; Ligation of fallopian tube; TUMOR RESECTION; vc1 - Immunization history:: Adult Immunizations up to date. - Infectious Disease History:: Denies. - Social history:: Smoking status: Patient denies any tobacco usage or history of. - Family history:: not pertinent. ROS: 07:04 Constitutional: Positive fever, body aches, chills, shoulder pain, headache, back pain. sp4 Positive sore throat 07:04 All other systems are negative, Exam: 07:04 Constitutional: This is a well developed, well nourished patient who is awake, alert, sp4 Uncomfortable appearing female. Head/Face: Normocephalic, atraumatic. Eyes: Pupils equal round and reactive to light, extra-ocular motions intact. Lids and lashes normal. Conjunctiva and sclera are not injected. Cornea within normal limits. Periorbital areas with no swelling, redness, or edema. ENT: Nares patent. No nasal discharge, no septal abnormalities noted. Tympanic membranes are normal and external auditory canals are clear. Oropharynx with redness, acute tonsillitis, bilateral tonsillar redness erythema and extensive exudates. Neck: Trachea midline, no thyromegaly or masses palpated, and no cervical lymphadenopathy. Supple, full range of motion without nuchal rigidity, or vertebral point tenderness. Chest/axilla: Normal chest wall appearance and motion. Nontender with no deformity. No lesions are appreciated. Cardiovascular: Regular rate and rhythm with a normal S1 and S2. No gallops, murmurs, or rubs. Normal PMI, no JVD. No pulse deficits. Respiratory: Lungs have equal breath sounds bilaterally, clear to auscultation and percussion. No rales, rhonchi or wheezes noted. No increased work of breathing, no retractions or nasal flaring. Abdomen/GI: Soft, with normal bowel sounds. No distension or tympany. No guarding or rebound. No evidence of tenderness throughout. Back: No spinal tenderness. No costovertebral tenderness. Skin: Warm, dry with normal turgor. Normal color with no rashes, no lesions, and no evidence of cellulitis. MS/ Extremity: Pulses equal, no cyanosis. Neurovascular intact. Full, normal range of motion. Neuro: Awake and alert, GCS 15, oriented to person, place, time, and situation. Cranial nerves II-XII grossly intact. Motor strength 5/5 in all extremities. Sensory grossly intact. Psych: Awake, alert, with orientation to person, place and time. Behavior, mood, and affect are within normal limits Vital Signs: 05:33 BP 142 / 65; Pulse 111; Resp 18; Temp 98.5; Pulse Ox 99% ; Weight 68.04 kg; Height 4 vc1 ft. 9 in. ; Pain 10/10; 06:20 BP 125 / 83; Pulse 81; Resp 20; Pulse Ox 100% ; Pain 10/10; jj7 05:33 Body Mass Index 32.46 (68.04 kg, 144.78 cm) vc1 05:33 Pain Scale: Adult vc1 06:20 Pain Scale: Adult jj7 Massimo Coma Score: 07:04 Eye Response: spontaneous(4). Motor Response: obeys commands(6). Verbal Response: sp4 oriented(5). Total: 15. 07:06 Eye Response: spontaneous(4). Motor Response: obeys commands(6). Verbal Response: sp4 oriented(5). Total: 15. MDM: 05:58 Patient medically screened. sp4 07:06 Differential diagnosis: hyponatremia, migraine, sinusitis, uremia, vasomotor headache. sp4 Data reviewed: vital signs, nurses notes, lab test result(s), electrolytes, hepatic panel, urinalysis. ED course: Patient has elevated white count with neutrophilic predominance indicative of significant tonsillitis also evidence of mild UTI. Patient is improved after medications. Will discharge home with as needed ibuprofen, Tylenol with codeine, ondansetron, cefdinir twice a day for 10 days, also Diflucan to prevent yeast infection.. 08/06 05:15 Order name: CBC with Diff; Complete Time: 06:56 sp4 08/06 05:15 Order name: CMP; Complete Time: 06:56 sp4 08/06 05:15 Order name: Lipase; Complete Time: 06:56 sp4 08/06 05:15 Order name: Urinalysis w/ reflexes; Complete Time: 06:56 sp4 08/06 05:59 Order name: CBC Smear Scan; Complete Time: 06:56 EDMS 08/06 05:15 Order name: IV Saline Lock; Complete Time: 06:15 sp4 08/06 05:15 Order name: Labs collected and sent; Complete Time: 06:15 sp4 Administered Medications: 06:30 Drug: Methocarbamol PO 1500 mg PO once Route: PO; jj7 07:05 Follow up: Response: No adverse reaction ko1 06:30 Drug: Rocephin - Rocephin (cefTRIAXone) IVPB 1 grams IVPB once over 30 mins; (mix in 50 jj7 mL NS) Route: IVPB; Infused Over: 30 mins; Site: left hand; 06:30 Drug: AZITHromycin PO 500 mg PO once Route: PO; jj7 07:05 Follow up: Response: No adverse reaction ko1 06:30 Drug: Ondansetron IVP 4 mg IVP once; over 2 minutes Route: IVP; Site: left hand; jj7 07:00 Follow up: Response: No adverse reaction ko1 06:31 Drug: NS 0.9% IV 1000 ml IV at 1 bolus Per protocol; 1000 mL bolus Route: IV; Rate: 1 jj7 bolus; Site: left hand; 07:05 Follow up: Response: No adverse reaction; IV Status: Completed infusion; IV Intake: ko1 1000ml 06:31 Drug: morphine IVP or IV 4 mg IVP once over 4 mins Route: IVP; Infused Over: 4 mins; jj7 Site: left hand; 07:00 Follow up: Response: No adverse reaction ko1 07:00 Follow up: Response: RASS: Drowsy (-1) ko1 06:31 Drug: Ketorolac IVP 30 mg IVP once Route: IVP; Site: left hand; jj7 07:00 Follow up: Response: No adverse reaction ko1 06:31 Drug: MethylPrednisoLONE IVP 125 mg IVP once Route: IVP; Site: left hand; jj7 07:00 Follow up: Response: No adverse reaction ko1 06:31 Drug: Famotidine IVP 20 mg IVP once; dilute with 10 mL 0.9% NaCl; give over 2 minutes jj7 Route: IVP; Site: left hand; 07:00 Follow up: Response: No adverse reaction ko1 07:18 Drug: Pinch PO 10 mg-325 mg 1 tabs PO once Route: PO; ko1 07:37 Follow up: Response: No adverse reaction ko1 Disposition Summary: 08/07/23 07:08 Discharge Ordered Notes: Location: Home sp4 Problem: new sp4 Symptoms: have improved sp4 Condition: Stable sp4 Diagnosis - Acute streptococcal tonsillitis, unspecified sp4 - Acute pharyngitis, acute UTI, body aches, sp4 Followup: sp4 - With: Ganesh Leonard DO - When: 7 - 10 days - Reason: Recheck today's complaints Discharge Instructions: - Discharge Summary Sheet sp4 - Tonsillitis sp4 Forms: - Work release form bp - Family Work Release bp - Patient Portal Instructions sp4 Prescriptions: - acetaminophen-codeine 300-60 mg Oral tablet - take 1 tablet ORAL route every 8 hours PRN pain; 15 tablet; Refills: 0, Product sp4 Selection Permitted - cefdinir 300 mg Oral capsule - take 1 capsule ORAL route 2 times per day for 10 days; 20 capsule; Refills: 0, sp4 Product Selection Permitted - Ibuprofen 800 mg Oral Tablet - take 1 tablet ORAL route every 8 hours As needed take with food; 30 tablet; sp4 Refills: 0, Product Selection Permitted - Fluconazole 200 mg Oral tablet - take 2 tablets ORAL route Every night; 10 tablet; Refills: 0, Product Selection sp4 Permitted - ondansetron 8 mg Oral Tablet,disintegrating - take 1 tablet ORAL route every 8 hours PRN nausea; 30 tablet; Refills: 0, sp4 Product Selection Permitted Signatures: Dispatcher [employer] Frida Oliveira RN RN vc1 Analy Little RN RN ko1 Jackie Craven RN RN jj7 Waqas Zamudio MD MD sp4
[2023-08-07] MEDS ORDERED: HYDROCODONE/APAP 10/325 TAB ONE (07:14)
[2023-08-07 08:00] VITALS: BP 125/83; TEMP 98.5; O2SAT 100
== END 2023-08-07 07:46 | disposition home or self-care (01) ==
LOC: ER 04:59
DX: J03.00 Acute streptococcal tonsillitis, unspecified (principal); N39.0 Urinary tract infection, site not specified; M79.10 Myalgia, unspecified site
CPT/HCPCS: 36415; 80053; 81001; 83690; 85025; 96361; 96374; 96375; 99284; J0696; J2405; J2919; J7030

== ENCOUNTER 2024-02-15 13:39 | Emergency (ER) | payer SELFPAY ==
--- OUTSIDE RECORDS SUMMARY | 2024-02-15 13:41 | XMS REPORT | Continuity of Care Document ---
Author Name Unknown Address [address] [place] [address]. [address] [facility] Address [address] [facility] [address] [place] [address] Care Team Providers Care Cattle Dealer Name Role Phone PCP, PATIENT DOES NOT HAVE A Primary Care Physic van Unavailable YOGI EMERY Attending Clinician Unavailable Allergies, Adverse Reactions, Alerts Allergy Name Allergy Type Status Severity Reaction(s) Onset Date Inactive Date Treating Clinician Comments Source NO KNOWN ALLERGIE S Drug Class Active [facility] Encounters Start Date/Time End Date/Time Encounter Type Admission Type Attending Clinicians Care Facility Care Department Encounter ID Source 2022-12-09 11:14:00 2022-12-09 13:46:00 Emergency X YOGI EMERY [facility] ERT [id number] [facility]
[2024-02-15] MEDS ORDERED: predniSONE 20 MG TAB ONE (14:48)
[2024-02-15] MEDS ORDERED: FAMOTIDINE 20 MG TAB ONE (14:48)
[2024-02-15] MEDS ORDERED: DIPHENHYDRAMINE 25 MG TAB/CAP ONE (14:51)
--- NOTE | 2024-02-15 15:51 | EDPHYS ---
Physician Documentation [facility] Name: Lidya Hall Age: 49 yrs Sex: Female : 1975 Arrival Date: 02/15/2024 Time: 13:39 Bed DX1 Private MD: ED Physician Dante Roberson HPI: 02/14 14:20 This 49 yrs old Female presents to ER via Ambulatory with complaints of Hives cp itching all over. 14:20 The patient's rash thought to be caused by an unknown cause. The rash is located on the cp body diffusely. The rash can be described as urticarial, itching. Onset: The symptoms/episode began/occurred today. Associated signs and symptoms: Pertinent positives: itching, Pertinent negatives: burning sensation, difficulty breathing, fever, Pain swelling of lips, swelling of throat, swelling of tongue. Treatment given at home: takes daily antihistamine. 14:20 The patient has experienced similar episodes in the past, a few times, unknown cause. cp Historical: - Allergies: 14:11 No Known Allergies; aa5 - PMHx: 14:11 None; aa5 - PSHx: 14:11 Appendectomy; Ligation of fallopian tube; TUMOR RESECTION; From leg; aa5 - Immunization history:: Adult Immunizations unknown. - Infectious Disease History:: Denies. - Social history:: Smoking status: Reported history of juuling and/or vaping. ROS: 14:25 Skin: Positive for rash, diffusely, generalized itching, cp 14:25 Eyes: Negative for injury, pain, redness, and discharge, cp 14:25 Constitutional: Negative for body aches, chills, fever, poor PO intake, 14:25 ENT: Negative for drainage from ear(s), ear pain, sore throat, difficulty swallowing, difficulty handling secretions, 14:25 Cardiovascular: Negative for chest pain, 14:25 Respiratory: Negative for cough, shortness of breath, wheezing, 14:25 All other systems are negative, Exam: 14:30 Constitutional: The patient appears in no acute distress, alert, awake, cp non-diaphoretic, non-toxic, well developed, well nourished, uncomfortable, 14:30 Head/Face: Normocephalic, atraumatic. cp 14:30 ENT: Posterior pharynx: Airway: no evidence of obstruction, patent, swelling, is not appreciated, erythema, is not appreciated, exudate, is not appreciated, 14:30 Cardiovascular: Rate: normal, Rhythm: regular, 14:30 Respiratory: the patient does not display signs of respiratory distress, Respirations: normal, no use of accessory muscles, no retractions, labored breathing, is not present, Breath sounds: are clear throughout, no decreased breath sounds, no stridor, no wheezing, 14:30 Skin: rash can be described as urticarial, and is diffusely located, Vital Signs: 14:11 BP 153 / 89; Pulse 90; Resp 19 S; Temp 98.6(O); Pulse Ox 100% on R/A; Weight 63.5 kg aa5 (R); Height 4 ft. 9 in. (R); 14:11 Body Mass Index 30.30 (63.50 kg, 144.78 cm) aa5 MDM: 14:14 Medical Screening Exam initiated cp 15:00 Differential diagnosis: varicella, allergic reaction, parasite infection, anxiety, cp cellulitis. 15:50 Data reviewed: vital signs, nurses notes, and as a result, I will discharge patient. cp 15:50 I considered the following discharge prescriptions or medication management in the cp emergency department Medications were administered in the Emergency Department. See MAR. Counseling: I had a detailed discussion with the patient and/or guardian regarding the historical points, exam findings, and any diagnostic results supporting the discharge/admit diagnosis, to return to the emergency department if symptoms worsen or persist or if there are any questions or concerns that arise at home. Response to treatment: the patient's symptoms have markedly improved after treatment, and as a result, I will discharge patient. Administered Medications: 14:57 Drug: predniSONE PO 60 mg PO once Route: PO; aa5 14:57 Drug: diphenhydrAMINE PO 50 mg PO once Route: PO; aa5 14:57 Drug: Famotidine PO 20 mg PO once Route: PO; aa5 Disposition Summary: 02/15/24 15:51 Discharge Ordered Notes: Location: Home cp Problem: new cp Symptoms: have improved cp Condition: Stable cp Diagnosis - Urticaria, unspecified cp Followup: cp - With: Private Physician - When: 2 - 3 days - Reason: Recheck today's complaints Discharge Instructions: - Discharge Summary Sheet cp - Hives cp Forms: - Medication Reconciliation Form cp - Antibiotic Education cp - Prescription Opioid Use cp - Patient Portal Instructions cp - Leadership Thank You Letter cp Prescriptions: - Pepcid 20 mg Oral Tablet - take 1 tablet ORAL route every 12 hours for 5 days; 10 tablet; Refills: 0, cp Product Selection Permitted - Prednisone 20 mg Oral Tablet - take 3 tablets ORAL route once daily for 5 days; 15 tablet; Refills: 0, Product cp Selection Permitted Signatures: Mary Lainez RN RN aa5 Alec Pappas PA PA cp
--- NOTE | 2024-02-15 15:51 | ER ---
Nurse's Notes [facility] Name: Lidya Hall Age: 49 yrs Sex: Female : 1975 Arrival Date: 02/15/2024 Time: 13:39 Bed DX1 Private MD: Diagnosis: Urticaria, unspecified Presentation: 02/14 14:11 Chief complaint: Patient states: itching and hives all over that began today around aa5 1100. Coronavirus screen: At this time, the client does not indicate any symptoms associated with coronavirus-19. Ebola Screen: Patient denies travel to an Ebola-affected area in the 21 days before illness onset. Initial Sepsis Screen: Does the patient meet any 2 criteria? No. Patient's initial sepsis screen is negative. Does the patient have a suspected source of infection? No. Patient's initial sepsis screen is negative. Risk Assessment: Do you want to hurt yourself or someone else? Patient reports no desire to harm self or others. Onset of symptoms was February 15, 2024. 14:11 Method Of Arrival: Ambulatory aa5 14:11 Acuity: SOL 4 aa5 Historical: - Allergies: 14:11 No Known Allergies; aa5 - PMHx: 14:11 None; aa5 - PSHx: 14:11 Appendectomy; Ligation of fallopian tube; TUMOR RESECTION; From leg; aa5 - Immunization history:: Adult Immunizations unknown. - Infectious Disease History:: Denies. - Social history:: Smoking status: Reported history of juuling and/or vaping. Vital Signs: 14:11 BP 153 / 89; Pulse 90; Resp 19 S; Temp 98.6(O); Pulse Ox 100% on R/A; Weight 63.5 kg aa5 (R); Height 4 ft. 9 in. (R); 14:11 Body Mass Index 30.30 (63.50 kg, 144.78 cm) aa5 ED Course: 13:43 Patient arrived in ED. ra3 14:11 Arm band placed on. aa5 14:12 Triage completed. aa5 14:14 Alec Pappas PA is PHCP. cp 14:14 Dante Roberson MD is Attending Physician. cp Administered Medications: 14:57 Drug: predniSONE PO 60 mg PO once Route: PO; aa5 14:57 Drug: diphenhydrAMINE PO 50 mg PO once Route: PO; aa5 14:57 Drug: Famotidine PO 20 mg PO once Route: PO; aa5 Outcome: 15:51 Discharge ordered by . pasquale 16:46 Patient left the ED. hb Signatures: Mary Lainez, RN RN aa5 Alec Pappas PA PA cp Baxter, Heather, RN RN Jennifer Higginbotham 3
[2024-02-15 19:25] VITALS: BP 153/89; TEMP 98.6; O2SAT 100
== END 2024-02-15 16:46 | disposition home or self-care (01) ==
LOC: ER 13:39
DX: L50.9 Urticaria, unspecified (principal)
CPT/HCPCS: 99282; J7512

== ENCOUNTER 2024-07-28 14:20 | Emergency (ER) | payer OTHER, SELFPAY ==
--- OUTSIDE RECORDS SUMMARY | 2024-07-28 14:23 | XMS REPORT | Continuity of Care Document ---
Author Name Unknown Address [address] [place] [address] [address] [place] [address] [facility] Address [address] [place] [address] [address] [place] [address] Care Team Providers Care Glove Brusher Name Role Phone PCP, PATIENT DOES NOT HAVE A Primary Care Physic van Unavailable YOGI EMERY Attending Clinician Unavailable Allergies, Adverse Reactions, Alerts Allergy Name Allergy Type Status Severity Reaction(s) Onset Date Inactive Date Treating Clinician Comments Source NO KNOWN ALLERGIE S Drug Class Active [facility] Encounters Start Date/Time End Date/Time Encounter Type Admission Type Attending Clinicians Care Facility Care Department Encounter ID Source 2022-12-09 11:14:00 2022-12-09 13:46:00 Emergency X YOGI EMERY [facility] ERT [id number] [facility]
[2024-07-28] MEDS ORDERED: dexAMETHasone 10 MG/ML VIAL ONE (15:17)
[2024-07-28] MEDS ORDERED: DIPHENHYDRAMINE 50 MG/ML VIAL ONE (15:17)
[2024-07-28] MEDS ORDERED: KETOROLAC 30 MG/ML INJ ONE (15:17)
[2024-07-28] MEDS ORDERED: NA CHLORIDE 0.9% 50 ML ONE (15:18)
[2024-07-28] MEDS ORDERED: NA CHLORIDE 0.9% 1,000 ML ONE (15:18)
[2024-07-28] MEDS ORDERED: METOCLOPRAMIDE 10 MG/2mL INJ ONE (15:18)
--- NOTE | 2024-07-28 15:43 | RAD REPORT ---
EXAM: Chest Single View HISTORY: 49 years Female CHEST PAIN COMPARISON: 08/07/2022 FINDINGS: LUNGS/PLEURA: The lungs are clear. No pleural effusions or pneumothorax. No pulmonary edema. CARDIAC/MEDIASTINUM: The cardiac silhouette is within normal limits. UPPER ABDOMEN: No significant abnormality. BONES: No acute abnormality. LINES/TUBES/OTHER: N/A IMPRESSION: No evidence of acute cardiopulmonary disease. No significant change from prior.
[2024-07-28 15:44] LABS: Absolute Basophils 0.1 K/uL (0-0.5); Absolute Eosinophils 0.3 K/uL (0-0.5); Absolute Lymphocytes (CBC) 3.1 K/uL (0.7-4.9); Absolute Monocytes 0.7 K/uL (0.1-1.3); Absolute Neutrophil 7.9 K/uL (1.8-8.0); Basophils % 0.6 % (0-1.3); Eosinophils % 2.2 % (0-4.4); Hematocrit 29.1 % (36.0-45.0); Lymphocytes % 25.8 % (15.3-44.8); MCH 18.3 pg (27.0-35.0); MCHC 31.1 g/dL (32.0-36.0); MCV 58.7 fL (80-100); Monocytes % 5.6 % (3.3-12.3); Neutrophils % 65.8 % (41.7-73.7); Nucleated Red Blood Cells % 0.1 % (0-0); Platelets 486 thou/uL (152-406); RBC Red Blood Cell Count 4.95 M/uL (3.86-4.86); Red Cell Distribution Width 19.5 % (12.1-15.2)
[2024-07-28 16:03] LABS: Anion Gap 7.2 mEq/L (5.0-15.0); Potassium 3.2 mEq/L (3.5-5.1); Troponin High Sensitivity 6.8 pg/mL (<58.9)
[2024-07-28] MEDS ORDERED: MORPHINE 4 MG/ML SYR ONE (16:52)
[2024-07-28 17:08] LABS: Anisocytosis 1+; Blood Morphology Comment NOTED (NOT SEEN); Hypochromasia 1+; Microcytosis SLIGHT; Ovalocytes SLIGHT; Platelet Estimate ADEQ; Target Cells FEW; White Blood Cell Scan OK (OK)
[2024-07-28] MEDS ORDERED: POTASSIUM CL SA 10 MEQ TAB PO ONE (17:37)
--- NOTE | 2024-07-28 17:39 | EDPHYS ---
Physician Documentation [facility] Name: Lidya Hall Age: 49 yrs Sex: Female : 1975 Arrival Date: 07/28/2024 Time: 14:20 Bed 5 Private MD: ED Physician Dante Roberson HPI: 07/28 14:40 This 49 yrs old Female presents to ER via Unassigned with complaints of Blood kb Pressure Problem, Headache, Nausea. 14:40 Pt is a 49 year old female who presents for headache that started 2-3 days ago. Reports kb nausea and chest pain started yesterday. Reports pain is to right side of head. States she checked her BP and it was 161/97. Denies history of HTN. . Historical: - Allergies: 14:43 No Known Allergies; hb - PSHx: 14:43 Appendectomy; Ligation of fallopian tube; TUMOR RESECTION; From leg; hb - Immunization history:: Adult Immunizations unknown. - Infectious Disease History:: Denies. - Social history:: Smoking status: Patient denies any tobacco usage or history of. ROS: 14:40 Constitutional: As per HPI kb Exam: 15:25 Constitutional: This is a well developed, well nourished patient who is awake, alert, kb and in no acute distress. Head/Face: Normocephalic, atraumatic. ENT: Moist Mucous membranes Cardiovascular: Regular rate Respiratory: Respirations even and unlabored. No increased work of breathing. Talking in full sentences Abdomen/GI: Soft, non-tender. No distention Skin: Warm, dry with normal turgor. Normal color. MS/ Extremity: Pulses equal, no cyanosis. Neurovascular intact. Full, normal range of motion. Neuro: Awake and alert, GCS 15, oriented to person, place, time, and situation. 15:25 ECG was reviewed by the Attending Physician. Vital Signs: 14:44 BP 159 / 86; Pulse 84; Resp 16; Temp 98.6; Pulse Ox 100% on R/A; Weight 63.5 kg; Height hb 4 ft. 9 in. ; Pain 8/10; 15:52 BP 176 / 95; Pulse 76; Resp 18; Pulse Ox 99% on R/A; ph 16:20 BP 144 / 82; Pulse 74; Resp 18; Pulse Ox 100% on R/A; ld1 17:52 BP 156 / 72; Pulse 81; Resp 18; Pulse Ox 100% on R/A; ld1 14:44 Body Mass Index 30.29 (63.50 kg, 144.78 cm) hb 14:44 Pain Scale: Adult hb MDM: 14:35 Medical Screening Exam initiated kb 18:42 Differential diagnosis: migraine, tension headache, hypertension. Data reviewed: vital kb signs, nurses notes. I considered the following discharge prescriptions or medication management in the emergency department I discussed and recommended Over The Counter medications. Test considered but Not performed: CT: ct head considered but pt has no neuro deficits. . Historians other than the Patient: Family Member: km. Counseling: I had a detailed discussion with the patient and/or guardian regarding the historical points, exam findings, and any diagnostic results supporting the discharge/admit diagnosis, lab results, the need for outpatient follow up, a family practitioner, to return to the emergency department if symptoms worsen or persist or if there are any questions or concerns that arise at home. Special discussion: I have referred the patient to see his PCP for further evaluation of high blood pressure. ED course: Pt feeling better and ready to go home. Discussed keeping BP log at home and follow up with PCP for management as needed. 07/28 14:42 Order name: Basic Metabolic Panel; Complete Time: 16:05 kb 07/28 14:42 Order name: CBC with Diff; Complete Time: 17:09 kb 07/28 14:42 Order name: Magnesium; Complete Time: 16:05 kb 07/28 14:42 Order name: Troponin HS; Complete Time: 16:05 kb 07/28 15:52 Order name: CBC Smear Scan; Complete Time: 17:09 EDMS 07/28 14:42 Order name: XRAY Chest (1 view); Complete Time: 15:46 kb 07/28 14:42 Order name: Cardiac monitoring; Complete Time: 15:23 kb 07/28 14:42 Order name: EKG - Nurse/Tech; Complete Time: 15:23 kb 07/28 14:42 Order name: IV Saline Lock; Complete Time: 15:51 kb 07/28 14:42 Order name: Labs collected and sent; Complete Time: 15:51 kb 07/28 14:42 Order name: O2 Per Protocol; Complete Time: 15:23 kb 07/28 14:42 Order name: O2 Sat Monitoring; Complete Time: 15:23 kb EC:25 Rate is 71 beats/min. Rhythm is regular. QRS Hobson is Normal. MO interval is normal at kb 138 msec. QRS interval is normal at 72 msec. QT interval is normal at 404 msec. Administered Medications: 15:51 Drug: NS 0.9% IV 1000 ml IV at 1000 ml once; to be given as a bolus over 60 minutes ph Route: IV; Rate: 1000 ml; Site: right antecubital; 17:53 Follow up: Response: No adverse reaction; IV Status: Completed infusion; IV Intake: ld1 1000ml 15:51 Drug: metoCLOPramide IVP 10 mg IVP once; over 1 to 2 minutes Route: IVP; Site: right ph antecubital; 17:53 Follow up: Response: No adverse reaction ld1 15:51 Drug: diphenhydrAMINE IVP 12.5 mg IVP once Route: IVP; Site: right antecubital; ph 17:52 Follow up: Response: No adverse reaction ld1 15:51 Drug: Ketorolac IVP 15 mg IVP once Route: IVP; Site: right antecubital; ph 17:52 Follow up: Response: No adverse reaction ld1 15:51 Drug: Decadron - Dexamethasone IVP 10 mg IVP once Route: IVP; Site: right antecubital; ph 17:52 Follow up: Response: No adverse reaction ld1 16:55 Drug: morphine IVP or IV 4 mg IVP once over 4 mins Route: IVP; Infused Over: 4 mins; ph Site: right antecubital; 17:52 Follow up: Response: No adverse reaction ld1 17:51 Drug: Potassium Chloride PO 40 mEq PO once Route: PO; ld1 17:53 Follow up: Response: No adverse reaction ld1 Disposition Summary: 07/28/24 17:38 Discharge Ordered Notes: Location: Home kb Condition: Stable kb Diagnosis - Elevated blood-pressure reading, without diagnosis of hypertension kb - Headache kb Followup: kb - With: Emergency Department - When: As needed - Reason: Worsening of condition Followup: kb - With: Private Physician - When: 2 - 3 days - Reason: Recheck today's complaints, Continuance of care, Re-evaluation by your physician Discharge Instructions: - Discharge Summary Sheet kb - Hypertension, Adult, [id number] kb - General Headache Without Cause, [id number] kb - Form - Blood Pressure Record Sheet kb Forms: - Medication Reconciliation Form kb - Antibiotic Education kb - Prescription Opioid Use kb - Patient Portal Instructions kb - Leadership Thank You Letter kb Signatures: Dispatcher [employer] EDMS Siddhartha Yaneli, E MAIL SYSTEM ADMINISTRATOR-C E MAIL SYSTEM ADMINISTRATOR-Senia Andrade RN RN Gloria Levine RN RN Karlene Cabrera RN RN ld1 Corrections: (The following items were deleted from the chart) 14:43 14:43 BASIC METABOLIC PANEL+C.LAB.BRZ ordered. EDMS EDMS 14:43 14:43 CBC+H.LAB.BRZ ordered. EDMS EDMS 14:43 14:43 MAGNESIUM+C.LAB.BRZ ordered. EDMS EDMS 14:43 14:43 Troponin High Sensitivity+C.LAB.BRZ ordered. EDMS EDMS 14:43 14:43 Chest Single View+RAD.RAD.BRZ ordered. EDMS EDMS
--- NOTE | 2024-07-28 17:39 | ER ---
Nurse's Notes [facility] Name: Lidya Hall Age: 49 yrs Sex: Female : 1975 Arrival Date: 07/28/2024 Time: 14:20 Bed 5 Private MD: Diagnosis: Elevated blood-pressure reading, without diagnosis of hypertension;Headache Presentation: 07/28 14:43 Chief complaint: Headache, nausea, photosensitivity, and high home BP x 2-3 days. hb Coronavirus screen: At this time, the client does not indicate any symptoms associated with coronavirus-19. Ebola Screen: No symptoms or risks identified at this time. Initial Sepsis Screen: Does the patient meet any 2 criteria? No. Patient's initial sepsis screen is negative. Does the patient have a suspected source of infection? No. Patient's initial sepsis screen is negative. Risk Assessment: Do you want to hurt yourself or someone else? Patient reports no desire to harm self or others. Onset of symptoms was July 26, 2024. 14:43 Method Of Arrival: Ambulatory hb 14:43 Acuity: SOL 3 hb Triage Assessment: 15:00 Headache History: The patient has had previous headaches. General: Appears in no ld1 apparent distress. comfortable, Behavior is calm, cooperative, appropriate for age. Pain: Also complains of no other associated symptoms. 15:00 Pain: Complains of pain in face Pain does not radiate. Pain currently is 8 out of 10 on ld1 a pain scale. Quality of pain is described as throbbing, Pain began suddenly. EENT: No signs and/or symptoms were reported regarding the EENT system. Neuro: Level of Consciousness is awake, alert, obeys commands, Oriented to person, place. Neuro: Reports headache. Cardiovascular: Capillary refill < 3 seconds Patient's skin is warm and dry. Respiratory: Airway is patent Respiratory effort is even, unlabored. Historical: - Allergies: 14:43 No Known Allergies; hb - PSHx: 14:43 Appendectomy; Ligation of fallopian tube; TUMOR RESECTION; From leg; hb - Immunization history:: Adult Immunizations unknown. - Infectious Disease History:: Denies. - Social history:: Smoking status: Patient denies any tobacco usage or history of. Screenin:50 [facility] ED Fall Risk Assessment (Adult) History of falling in the last 3 months, ph including since admission No falls in past 3 months (0 pts) Confusion or Disorientation No (0 pts) Intoxicated or Sedated No (0 pts) Impaired Gait No (0 pts) Mobility Assist Device Used No (0 pt) Altered Elimination No (0 pt) Score/Fall Risk Level 0 - 2 = Low Risk Oriented to surroundings, Maintained a safe environment, Hourly rounding (assess needs \T\ fall precautionary measures) done. Abuse screen: Denies threats or abuse. Denies injuries from another. Nutritional screening: No deficits noted. Tuberculosis screening: No symptoms or risk factors identified. Assessment: 15:49 General: Appears in no apparent distress. comfortable, well groomed, Behavior is calm, ph cooperative, appropriate for age. Pain: Complains of pain in HEAD. Neuro: Level of Consciousness is awake, alert, obeys commands, Oriented to person, place, time, situation, Reports headache occipital area. Cardiovascular: Capillary refill < 3 seconds in bilateral fingers Patient's skin is warm and dry. Respiratory: Airway is patent Respiratory effort is even, unlabored. GI: Reports nausea. Derm: Skin is pink, warm \T\ dry. Musculoskeletal: Circulation, motion, and sensation intact. Range of motion: intact in all extremities. 16:20 Reassessment: Patient appears in no apparent distress at this time. No changes from ld1 previously documented assessment. Patient and/or family updated on plan of care and expected duration. Pain level reassessed. 17:52 Reassessment: Patient appears in no apparent distress at this time. No changes from ld1 previously documented assessment. Patient and/or family updated on plan of care and expected duration. Pain level reassessed. Vital Signs: 14:44 BP 159 / 86; Pulse 84; Resp 16; Temp 98.6; Pulse Ox 100% on R/A; Weight 63.5 kg; Height hb 4 ft. 9 in. ; Pain 8/10; 15:52 BP 176 / 95; Pulse 76; Resp 18; Pulse Ox 99% on R/A; ph 16:20 BP 144 / 82; Pulse 74; Resp 18; Pulse Ox 100% on R/A; ld1 17:52 BP 156 / 72; Pulse 81; Resp 18; Pulse Ox 100% on R/A; ld1 14:44 Body Mass Index 30.29 (63.50 kg, 144.78 cm) hb 14:44 Pain Scale: Adult hb Vitals: 15:52 Cardiac Rhythm Assessment Sinus rhythm. ph ED Course: 14:26 Patient arrived in ED. mr 14:35 Yaneli Carl FNP-C is [facility]. kb 14:35 Dante Roberson MD is Attending Physician. kb 14:43 Triage completed. hb 14:45 Arm band placed on right wrist. hb 15:38 XRAY Chest (1 view) In Process Unspecified. EDMS 15:48 Senia Weller, RN is Primary Nurse. ph 15:48 Initial lab(s) drawn, by me, sent to lab. EKG done, by ED staff, reviewed by Yaneli CORDERO. Inserted saline lock: 22 gauge in right antecubital area, using aseptic technique. Blood collected. Flushed with 10 mL NS. 15:50 Patient has correct armband on for positive identification. Bed in low position. Call ph light in reach. Side rails up X 1. front desk monitor on. Pulse ox on. NIBP on. Door closed. Noise minimized. Warm blanket given. 17:53 No provider procedures requiring assistance completed. IV discontinued, intact, ld1 bleeding controlled, No redness/swelling at site. Administered Medications: 15:51 Drug: NS 0.9% IV 1000 ml IV at 1000 ml once; to be given as a bolus over 60 minutes ph Route: IV; Rate: 1000 ml; Site: right antecubital; 17:53 Follow up: Response: No adverse reaction; IV Status: Completed infusion; IV Intake: ld1 1000ml 15:51 Drug: metoCLOPramide IVP 10 mg IVP once; over 1 to 2 minutes Route: IVP; Site: right ph antecubital; 17:53 Follow up: Response: No adverse reaction ld1 15:51 Drug: diphenhydrAMINE IVP 12.5 mg IVP once Route: IVP; Site: right antecubital; ph 17:52 Follow up: Response: No adverse reaction ld1 15:51 Drug: Ketorolac IVP 15 mg IVP once Route: IVP; Site: right antecubital; ph 17:52 Follow up: Response: No adverse reaction ld1 15:51 Drug: Decadron - Dexamethasone IVP 10 mg IVP once Route: IVP; Site: right antecubital; ph 17:52 Follow up: Response: No adverse reaction ld1 16:55 Drug: morphine IVP or IV 4 mg IVP once over 4 mins Route: IVP; Infused Over: 4 mins; ph Site: right antecubital; 17:52 Follow up: Response: No adverse reaction ld1 17:51 Drug: Potassium Chloride PO 40 mEq PO once Route: PO; ld1 17:53 Follow up: Response: No adverse reaction ld1 Medication: 15:51 VIS not applicable for this client. ph Intake: 17:53 IV: 1000ml; Total: 1000ml. ld1 Outcome: 17:38 Discharge ordered by . mark 17:54 Discharged to home ambulatory, ld1 17:54 Condition: stable 17:54 Discharge instructions given to patient, family, Instructed on discharge instructions, follow up and referral plans. Demonstrated understanding of instructions, follow-up care, 17:55 Patient left the ED. ld1 Signatures: Dispatcher [employer] EDMS Yaneli Carl, CONSUELO RENAL NURSE-Caprice Solorio, Reg Reg mr Senia Weller, SULEMA RN Gloria Levine, SULEMA RN Karlene Cabrera, SULEMA RN ld1 Corrections: (The following items were deleted from the chart) 14:46 14:44 BP 159 / 86; Pulse 84bpm; Resp 16bpm; Pulse Ox 100% RA; 63.5 kg; Height 4 ft. 9 hb in.; BMI: 30.3; hb
[2024-07-28 18:09] VITALS: TEMP 98.6
[2024-07-28 18:20] VITALS: O2SAT 100
[2024-07-28 18:21] VITALS: BP 156/72
== END 2024-07-28 17:55 | disposition home or self-care (01) ==
LOC: ER 14:20
DX: R03.0 Elevated blood-pressure reading, without diagnosis of hypertension (principal)
CPT/HCPCS: 36415; 71045; 80048; 83735; 84484; 85025; 93005; J1100; J1200; J2765; J7030